=== PATIENT | female | born 1955 | race Caucasian/White ===

== ENCOUNTER 2024-03-08 02:03 | Observation (INO) ==
[2024-03-08 02:25] LABS: Basophils # (auto) 0.06 K/uL (0.00-0.20); Eosinophils % (auto) 3.4 %; Hematocrit (blood only) 37.1 % (37.0-47.0); Hemoglobin 12.3 g/dl (12.0-16.0); Immature Granulocytes # (auto) 0.01 K/uL (0.01-0.20); Immature Granulocytes % (auto) 0.2 %; Lymphocytes # (auto) 1.53 K/uL (1.20-3.40); Lymphocytes % (auto) 26.2 %; Mean Corpuscular Hemoglobin 30.8 pg (25.0-34.0); Mean Corpuscular Hgb Conc 33.2 g/dL (32.0-36.0); Mean Corpuscular Volume 92.8 fL (80.0-100.0); Monocytes # (auto) 0.82 K/uL (0.11-0.59); Neutrophils # (auto) 3.22 K/uL (1.40-6.50); Neutrophils % (auto) 55.2 %; Platelet Count 232 K/uL (130-400); RDW Coefficient of Variation 13.1 % (11.5-14.5); RDW Standard Deviation 44.4 fL (36.4-46.3); White Blood Count 5.84 K/ul (4.8-10.8)
--- NOTE | 2024-03-08 02:28 | Emergency Department Note ---
Impression & Plan Chest pressure ED Provider Note NAME: HEIDY DUNLAP AGE: 68 SEX: Female INFORMANT: Patient ED PROVIDER(S): Ammon Orr MD CHIEF COMPLAINT: Chest pressure PLAN: Disposition: Admitted Outpatient prescription management: none Referral: None MEDICAL DECISION MAKING: Patient presented to the emerged part because of chest heaviness. She had some mild ST depression inferiorly on prehospital ECG. She did feel better after nitro and aspirin. She was doing much better in the emergency department here. She did complain of some brief numbness in both upper and lower extremities bilaterally. It did start on the left side and moved to the right side. She had a nonfocal neurologic examination in the ER. A workup was initiated. ECG here in the ER. Improved without acute ischemia. The patient has an unremarkable CBC and chemistry panel. Cardiac troponin was negative x 1. Her D-dimer was elevated. CT imaging was ordered. Patient was monitored. Record was reviewed and the patient did see cardiology in January. She had an abnormal stress test and cardiology recommended cardiac CT. Patient noted this was not scheduled until April 2024. chest CT did not reveal any evidence of thromboembolic disease. Radiology question some possible infectious findings. Patient has no cough or congestion. BioFire testing was ordered. Discussed the need for further management in the hospital given the situation and patient in agreement. Consultation was made with Dr. Hipolito Rodriguez of the [facility] service. Patient was evaluated in the ER for further management. Care/management discussed with: body care manager Level of care consideration(s): After review of the information above and other included data, I feel the patient requires escalation of care to admission Triage Nursing notes: reviewed and agree them. Vital Signs: reviewed and remarkable for no significant abnormalities Additional History obtained from: none Chronic Medical/Social Conditions affecting care: Diabetes Prior/ Outside/ External records reviewed: Cardiology record from January 26, 2024 reviewed. Patient was seen by Dr. Buenrostro. Had abnormal stress test and they considered workup. Patient was referred for cardiac CT. Differential Diagnosis: Cardiac ischemia, aortic dissection, pulmonary embolism, pneumothorax, pneumonia, pericarditis, myocarditis, esophageal rupture, GERD, cholecystitis, pancreatitis, musculoskeletal, neurologic, as well as other pathologies. Diagnostics, independently interpreted by me: ECG: Twelve-lead ECG reveals a sinus rhythm at [address] elevation or depression. When compared to prehospital ECG from today the patient has resolution of inferior ST depression. Cardiac Monitoring: Cardiac monitoring ordered by me: The patient was placed on continuous cardiac monitoring and observed. It revealed a normal sinus rhythm at 69 beats per minute without ectopy or evidence of dysrhythmia. Medical decision rules: Patient is moderate risk by HEART SCORE. Imaging studies: Chest x-ray. Findings: A chest x-ray was performed and revealed no pneumothorax, effusion, infiltrate, pulmonary edema, free air under the diaphragm, or wide mediastinum. Impression: No acute disease. HPI: 68 year old Female arrives for evaluation of chest pressure. This started at 8 pm tonight and non radiating. The patient also notes the following associated symptoms, numbness in upper and lower extremities that started an hour ago. The patient has aspirin and nitro for relieving factors. Current pain is rated as 1/10. Pt denies LOC, headache, fevers, chills, diaphoresis, visual changes, neck pain, chest pain, breathing difficulties, nausea, vomiting, abdominal pain, back pain, melena, hematochezia, urinary symptoms, lymphadenopathy, rash, or other complaints. . PAST MEDICAL HISTORY: See Below, diabetes PAST SURGICAL HISTORY: See Below, SOCIAL HISTORY: See Below, non-smoker HOME MEDICATIONS: See Below ALLERGIES: See Below VITALS: See Below PHYSICAL EXAMINATION: GENERAL: Awake, alert, uncomfortable-appearing, in no distress HENT: Normocephalic, atraumatic. Oropharynx unremarkable. EYES: Normal conjunctiva. Sclera non-icteric. NECK: Inspection normal. Non-tender. Supple. No nuchal rigidity. FROM. No masses. RESPIRATORY: Clear to auscultation. No wheezes. No rales. Normal respiratory effort. CARDIAC: Normal rate. Normal rhythm. No murmurs. No rubs. Extremities warm and well perfused. Pulses equal. No JVD. GI: Soft, non-distended. No tenderness to palpation. No rebound or guarding. No masses. RECTAL: Deferred. MUSCULOSKELETAL: Atraumatic. Chest examination reveals no tenderness. The back is symmetrical on inspection without obvious abnormality. There is no CVA tenderness to palpation. No joint edema. LOWER EXTREMITIES: Calves are equal size bilaterally and non-tender. No edema. No discoloration. NEURO: Normal sensorium. No sensory or motor deficits noted. SKIN: No rash or jaundice noted. PROCEDURES: none CRITICAL CARE: none OBSERVATION NOTE: none Past Med/Surg History Problem List (Updated 03/08/24 @ 02:28 by Ammon Orr MD) Chest pressure (Acute) Changing skin lesion Abnormal stress test Onychomycosis Bilateral great toes Hyperlipidemia Encounter for pre-operative examination Anxiety (Acute) Chest pain on exertion (Acute) Chest pain (Acute) Diabetes mellitus type 2, controlled Iron deficiency anemia Renal calculus, left Medical History History of blood transfusion History of fainting Hx of chest pain Iron deficiency anemia Hx of peripheral neuropathy Diabetes mellitus, type 2 Urinary tract infection Hx of renal calculi Anxiety Surgical History Hx of vaginal surgery Hx of section Hx of colonoscopy [place] teeth extracted Family History Sister Breast cancer Mother Diabetes Father Myocardial infarction Other Heart disease Denies family history of Ovarian cancer Prostate cancer Colorectal cancer Social History Smoking Status: Never smoker Second Hand Exposure: No; Do You Dip or Chew Tobacco: No; Hx Alcohol Use: Yes (hx) Hx Substance Use: No Preferred Language: Macedonian Communication Ability: Effective Visual Impairment: No Limitations Hearing Ability: Hard of Hearing 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 Beliefs That Will Affect Care: None marital status: Current Living Situation: Spouse current occupational status: retired How many Children do You have: 2 How many Children do You have Comment: daughters Feels Safe at Home: Yes Childhood Exposure to Second-Hand Smoke: No Diet: diabetic caffeine: No during the past year weight has: decreased > 10 lbs Dental Care, Regularly: No Physical Activity Frequency: Daily Seatbelt Use: always Sunscreen Use: No Assistive Devices: Glasses Allergies Allergies Allergy/AdvReac Type Severity Reaction Status Date / Time nickel Allergy Mild RASH Verified 01/26/24 15:05 Home Meds Home Medications Medication Instructions Recorded Confirmed multivitamin 1 tab PO QPM 01/15/22 01/26/24 ascorbic acid (vitamin C) 1,000 mg 1,000 mg PO QAM 01/31/22 01/26/24 tablet,extended release (Vitamin C ER) Previous Rx's Medication Instructions Recorded aspirin 81 mg tablet,delayed 81 mg PO DAILY #30 tabs 02/21/22 release (Adult Low Dose Aspirin) atorvastatin 80 mg tablet See Rx Instructions .Route 02/12/23 .COMPLEX #90 tabs metformin 500 mg tablet 500 mg PO QPM #90 tabs 02/12/23 hydroxyzine HCl 25 mg tablet See Rx Instructions .Route 11/16/23 .COMPLEX #90 tabs sertraline 100 mg tablet 100 - 200 mg (1 - 2 x 100 mg) PO 12/02/23 DAILY #180 tabs ferrous gluconate 225 mg (27 mg 225 mg PO DAILY #90 tabs 12/14/23 iron) tablet gemfibrozil 600 mg tablet 600 mg PO BID 90 days #180 tabs 12/14/23 Results & Data (ED) Vital Signs Vital Signs - 24 hr 03/08/24 02:05 03/08/24 02:10 03/08/24 02:18 Temperature 36.6 C Temperature Source Oral Pulse Rate 77 73 Pulse Rate [Apical] Respiratory Rate 20 Respiratory Effort / Characteristics Non-Labored Spontaneous Respiratory Depth Normal Blood Pressure 158/75 H Blood Pressure [Right Arm] Blood Pressure Mean 102 Blood Pressure Mean [Right Arm] Pulse Oximetry 98 99 Oxygen Delivery Method Room Air Room Air Sepsis Recent Fever Within 48 Hours No Sepsis New/Unexplained Change in Mental Status N/A Sepsis Action Taken by Nursing No Action Required 03/08/24 02:30 03/08/24 03:01 03/08/24 03:30 Temperature Temperature Source Pulse Rate 85 87 77 Pulse Rate [Apical] Respiratory Rate 18 20 16 Respiratory Effort / Characteristics Respiratory Depth Blood Pressure 163/83 H 149/94 H 133/71 Blood Pressure [Right Arm] Blood Pressure Mean 127 98 100 Blood Pressure Mean [Right Arm] Pulse Oximetry 100 98 95 Oxygen Delivery Method Room Air Room Air Room Air Sepsis Recent Fever Within 48 Hours Sepsis New/Unexplained Change in Mental Status Sepsis Action Taken by Nursing 03/08/24 04:16 03/08/24 04:30 03/08/24 05:00 Temperature Temperature Source Pulse Rate Pulse Rate [Apical] 69 82 72 Respiratory Rate 18 18 20 Respiratory Effort / Characteristics Non-Labored Non-Labored Respiratory Depth Normal Normal Blood Pressure Blood Pressure [Right Arm] 135/75 133/69 152/73 H Blood Pressure Mean Blood Pressure Mean [Right Arm] 95 90 99 Pulse Oximetry 96 98 93 Oxygen Delivery Method Room Air Room Air Room Air Sepsis Recent Fever Within 48 Hours Sepsis New/Unexplained Change in Mental Status Sepsis Action Taken by Nursing 03/08/24 05:30 03/08/24 06:00 03/08/24 06:13 Temperature Temperature Source Pulse Rate 90 Pulse Rate [Apical] 69 71 Respiratory Rate 18 20 Respiratory Effort / Characteristics Respiratory Depth Blood Pressure Blood Pressure [Right Arm] 116/76 140/76 Blood Pressure Mean Blood Pressure Mean [Right Arm] 89 97 Pulse Oximetry 94 96 Oxygen Delivery Method Room Air Room Air Sepsis Recent Fever Within 48 Hours Sepsis New/Unexplained Change in Mental Status Sepsis Action Taken by Nursing Laboratory Data 03/08/24 02:10 03/08/24 02:10 Lab Results 03/08/24 Range/Units 02:10 WBC 5.84 (4.8-10.8) K/ul RBC 4.00 L (4.20-5.40) M/uL Hgb 12.3 (12.0-16.0) g/dl Hct 37.1 (37.0-47.0) % MCV 92.8 (80.0-100.0) fL MCH 30.8 (25.0-34.0) pg MCHC 33.2 (32.0-36.0) g/dL RDW Std Deviation 44.4 (36.4-46.3) fL RDW Coeff of Brianna 13.1 (11.5-14.5) % Plt Count 232 (130-400) K/uL MPV 10.0 (9.4-12.4) fL Immature Gran % (Auto) 0.2 % Neut % (Auto) 55.2 % Lymph % (Auto) 26.2 % Rowan % (Auto) 14.0 % Eos % (Auto) 3.4 % Baso % (Auto) 1.0 % Neut # (Auto) 3.22 (1.40-6.50) K/uL Lymph # (Auto) 1.53 (1.20-3.40) K/uL Rowan # (Auto) 0.82 H (0.11-0.59) K/uL Eos # (Auto) 0.20 (0.00-0.50) K/uL Baso # (Auto) 0.06 (0.00-0.20) K/uL Immature Gran # (Auto) 0.01 (0.01-0.20) K/uL D-Dimer 730 H* (0-500) ug/L FEU Sodium 139 (136-145) mmol/L Potassium 3.8 (3.5-5.1) mmol/L Chloride 107 (98-107) mmol/L Carbon Dioxide 23 (21-32) mmol/L Anion Gap 9 (3-11) BUN 26 H (6-23) mg/dl Creatinine 1.03 (0.6-1.2) mg/dl Est Cr Clr Drug Dosing 44.3 ml/min eGFR 58.86 BUN/Creatinine Ratio 25.2 H (10-20) Glucose 214 H (70-99(Fasting)) mg/dl Calcium 10.0 (8.6-10.3) mg/dl Total Bilirubin 0.4 (0.2-1.0) mg/dl AST 20 (13-39) U/L ALT 12 (7-52) U/L Alkaline Phosphatase 101 (34-104) U/L Troponin I High Sens 6.7 (0-14) pg/ml Total Protein 7.7 (6.0-8.3) gm/dl Albumin 4.7 (3.4-5.0) gm/dl Globulin 3.0 (2.5-4.0) gm/dl Albumin/Globulin Ratio 1.6 (0.9-2) Lipase 33 (11-82) U/L Administered Medications Discontinued Medications Ioversol (Optiray 320 125ml) 125 ml IV ONCE ONE Stop: 03/08/24 04:54 Last Admin: 03/08/24 04:53 Dose: 118 ml Documented By: JUWAN Imaging Data Radiologist's Impression: Chest X-Ray 03/08/24 02:07 EXAM: XR chest 1V portable CLINICAL HISTORY: CHEST PAIN [facility] TECHNIQUE: X-ray image of the chest is obtained in AP projection. COMPARISON: 09/09/2023 CR. FINDINGS: Pulmonary Parenchyma: Prominent central broncho vascular markings. No evidence of consolidation, collapse, or focal opacities. No evidence of pleural effusion or pleural thickening. Heart and Mediastinum: The heart size is unremarkable for an AP projection. Prominent hilar shadows, more on the left. Bony Thorax: Mild degenerative changes of the skeleton. Soft Tissues: Soft tissues overlying the chest wall are unremarkable. IMPRESSION: 1. Prominent hilar shadows with prominent broncho vascular markings (Stable). Clinical correlation is advised to assess for pulmonary congestion. 2. No significant interval change since the previous study. Electronically signed by Gabriel Saha 03-08-2024 03:09 AM Chest CTA 03/08/24 04:21 EXAM: CT angio chest PE protocol CLINICAL HISTORY: CP, +dimer, 118 ML OPTIRAY 320 TECHNIQUE: CT angiography of the chest was performed with intravenous contrast with the following protocol: axial images with, reconstructed coronal and sagittal images, followed by contrast-enhanced images in arterial and venous phases. Intravenous contrast [name and volume] was administered using automated injection techniques. Bolus tracking was employed to optimize arterial phase imaging. One of these 3D techniques was utilized: Maximum Intensity Pixel (MIP), 3D Reconstructed Images, Volume Rendered Images, Surface Shaded Rendering. One of the following dose reduction techniques was utilized for this exam: Automated exposure control, adjustment of the mA and/or kV according to patient size, and use of iterative reconstruction. COMPARISON: CT on 02/19/2022 and 03/08/2024 FINDINGS: Aorta and Great Vessels: Ascending Aorta: Normal in caliber, no aneurysm or dissection. Aortic Arch: Normal in caliber, no aneurysm or dissection. Descending Aorta: Normal in caliber, no aneurysm or dissection. Pulmonary Arteries: The main pulmonary artery and its branches are patent. No evidence of pulmonary embolism or significant stenosis. Heart: Cardiac Chambers: Normal in size. No evidence of cardiomegaly. Pericardium: No pericardial effusion or thickening. Lungs and Pleura: A small subpleural nodular opacities in the left lingula (stable) A few small peripheral nodular opacities in the right lower lobe. A few bilateral basal ground glass opacities are likely due to edema. No pleural effusion or pleural thickening. Mediastinum: No mediastinal mass or abnormal lymphadenopathy. Normal appearance of the trachea and central bronchi. Hilar Structures: Hilar structures are normal without enlargement. Chest Wall: No mass lesions or abnormalities in the chest wall. Vascular Structures: Superior Vena Cava: Patent without evidence of stenosis or thrombus. Inferior Vena Cava: Patent without evidence of stenosis or thrombus. Bones and Soft Tissues: No fractures, lytic, or blastic lesions of the visualized bony structures. Soft tissues are unremarkable. Significant atheromatous changes are noted in abdominal aorta and its branches IMPRESSION: 1. No evidence of acute pulmonary embolism or significant stenosis. 2. A few small peripheral nodular opacities/infilitrates seen in the right lower lobe suggesting infection followup is advised 3. A small subpleural nodular opacities in the left lingula (stable in comparison with CT on 02/19/2022. 4. A few bilateral basal ground glass opacities are likely due to edema. Electronically signed by Gabriel Saha 03-08-2024 06:00 AM Discharge Plan Visit Data Chief Complaint: Cardiac Assessment Stated Complaint: CHEST DISCOMFORT, HX OF SAME, HERE 1 WK AGO ED Provider: Ammon Orr Discharge Problem: Chest pressure Forms Stand Alone Forms: My [facility] [employer] Prescriptions Prescriptions: No Action aspirin [Adult Low Dose Aspirin] 81 mg tablet,delayed release (DR/EC) 81 mg PO DAILY Qty: 30 2RF hydroxyzine HCl 25 mg tablet See Rx Instructions .ROUTE .COMPLEX Qty: 90 1RF Dose Instruction: TAKE 1 TABLET BY MOUTH THREE TIMES DAILY NEEDED FOR ANXIETY Rx Instructions: TAKE 1 TABLET BY MOUTH THREE TIMES DAILY NEEDED FOR ANXIETY sertraline 100 mg tablet 100 - 200 mg PO DAILY Qty: 180 3RF Rx Instructions: take 1 tablet every day, take second tablet as needed for anxiety.; taken at HS. atorvastatin 80 mg tablet See Rx Instructions .ROUTE .COMPLEX Qty: 90 3RF Dose Instruction: Take 1 tablet by mouth once daily Rx Instructions: Take 1 tablet by mouth once daily metformin 500 mg tablet 500 mg PO QPM Qty: 90 3RF Rx Instructions: after lunch ferrous gluconate 225 mg (27 mg iron) tablet 225 mg PO DAILY Qty: 90 3RF Rx Instructions: Take 1 tablet every other day gemfibrozil 600 mg tablet 600 mg PO BID 90 Days Qty: 180 3RF Vitamin C 1,000 mg Tablet Extended Release 1,000 mg PO QAM multivitamin Tablet 1 tab PO QPM Rx Instructions: after lunch Referrals Referrals: Abdi Manuel DO [Primary Care Provider] -
[2024-03-08 02:42] LABS: Albumin Globulin Ratio 1.6 (0.9-2); Albumin Level 4.7 gm/dl (3.4-5.0); BUN Creatinine Ratio 25.2 (10-20); Bilirubin,Total 0.4 mg/dl (0.2-1.0); Creatinine Clr Calc Pharmacy 44.3 ml/min; Potassium 3.8 mmol/L (3.5-5.1); Total Protein 7.7 gm/dl (6.0-8.3)
[2024-03-08 02:48] LABS: Troponin I High Sensitivity 6.7 pg/ml (0-14)
--- NOTE | 2024-03-08 03:10 | XRay Report ---
EXAM: XR chest 1V portable CLINICAL HISTORY: CHEST PAIN [facility] TECHNIQUE: X-ray image of the chest is obtained in AP projection. COMPARISON: 09/09/2023 CR. FINDINGS: Pulmonary Parenchyma: Prominent central broncho vascular markings. No evidence of consolidation, collapse, or focal opacities. No evidence of pleural effusion or pleural thickening. Heart and Mediastinum: The heart size is unremarkable for an AP projection. Prominent hilar shadows, more on the left. Bony Thorax: Mild degenerative changes of the skeleton. Soft Tissues: Soft tissues overlying the chest wall are unremarkable. IMPRESSION: 1. Prominent hilar shadows with prominent broncho vascular markings (Stable). Clinical correlation is advised to assess for pulmonary congestion. 2. No significant interval change since the previous study. Electronically signed by Gabriel Saha 03-08-2024 03:09 AM
[2024-03-08 03:36] LABS: D Dimer 730 ug/L FEU (0-500)
[2024-03-08] MEDS: OPTIRAY 320 125ml IV ONE (04:53)
--- NOTE | 2024-03-08 06:00 | CT Scan Report ---
EXAM: CT angio chest PE protocol CLINICAL HISTORY: CP, +dimer, 118 ML OPTIRAY 320 TECHNIQUE: CT angiography of the chest was performed with intravenous contrast with the following protocol: axial images with, reconstructed coronal and sagittal images, followed by contrast-enhanced images in arterial and venous phases. Intravenous contrast [name and volume] was administered using automated injection techniques. Bolus tracking was employed to optimize arterial phase imaging. One of these 3D techniques was utilized: Maximum Intensity Pixel (MIP), 3D Reconstructed Images, Volume Rendered Images, Surface Shaded Rendering. One of the following dose reduction techniques was utilized for this exam: Automated exposure control, adjustment of the mA and/or kV according to patient size, and use of iterative reconstruction. COMPARISON: CT on 02/19/2022 and 03/08/2024 FINDINGS: Aorta and Great Vessels: Ascending Aorta: Normal in caliber, no aneurysm or dissection. Aortic Arch: Normal in caliber, no aneurysm or dissection. Descending Aorta: Normal in caliber, no aneurysm or dissection. Pulmonary Arteries: The main pulmonary artery and its branches are patent. No evidence of pulmonary embolism or significant stenosis. Heart: Cardiac Chambers: Normal in size. No evidence of cardiomegaly. Pericardium: No pericardial effusion or thickening. Lungs and Pleura: A small subpleural nodular opacities in the left lingula (stable) A few small peripheral nodular opacities in the right lower lobe. A few bilateral basal ground glass opacities are likely due to edema. No pleural effusion or pleural thickening. Mediastinum: No mediastinal mass or abnormal lymphadenopathy. Normal appearance of the trachea and central bronchi. Hilar Structures: Hilar structures are normal without enlargement. Chest Wall: No mass lesions or abnormalities in the chest wall. Vascular Structures: Superior Vena Cava: Patent without evidence of stenosis or thrombus. Inferior Vena Cava: Patent without evidence of stenosis or thrombus. Bones and Soft Tissues: No fractures, lytic, or blastic lesions of the visualized bony structures. Soft tissues are unremarkable. Significant atheromatous changes are noted in abdominal aorta and its branches IMPRESSION: 1. No evidence of acute pulmonary embolism or significant stenosis. 2. A few small peripheral nodular opacities/infilitrates seen in the right lower lobe suggesting infection followup is advised 3. A small subpleural nodular opacities in the left lingula (stable in comparison with CT on 02/19/2022. 4. A few bilateral basal ground glass opacities are likely due to edema. Electronically signed by Gabriel Saha 03-08-2024 06:00 AM
[2024-03-08 07:11] LABS: Adenovirus PCR Not Detected (NotDetected); Bordetella parapertussis PCR Not Detected (NotDetected); Bordetella pertussis PCR Not Detected (NotDetected); Chlamydia pneumoniae PCR Not Detected (NotDetected); Coronavirus 229E PCR Not Detected (NotDetected); Coronavirus CoV-2 (COVID19)PCR Not Detected (NotDetected); Coronavirus HKU1 PCR Not Detected (NotDetected); Coronavirus NL63 PCR Not Detected (NotDetected); Coronavirus OC43PCR Not Detected (NotDetected); Human Metapneumovirus PCR Not Detected (NotDetected); Influenza A PCR Not Detected (NotDetected); Influenza B PCR Not Detected (NotDetected); Mycoplasma pneumoniae PCR Not Detected (NotDetected); Parainfluenza Virus 1 PCR Not Detected (NotDetected); Parainfluenza Virus 2 PCR Not Detected (NotDetected); Parainfluenza Virus 3 PCR Not Detected (NotDetected); Parainfluenza Virus 4 PCR Not Detected (NotDetected); Respiratory Syncytial VirusPCR Not Detected (NotDetected); Rhinovirus/Enterovirus PCR Not Detected (NotDetected)
[2024-03-08] MEDS: hydrOXYzine HCl 25 MG TAB PO STA (07:32)
--- NOTE | 2024-03-08 07:43 | History & Physical Report ---
Date of Service March 08, 2024 Assessment & Plan (1) Unstable angina: Plan: Patient presents with unstable angina at rest after several months of stable angina Risk factors include longstanding diabetes, family history of heart disease With subtle ST depressions on prehospital ECG now resolved after nitroglycerin With abnormal stress echocardiogram as an outpatient in 11/2023 with inferobasal wall motion abnormality Admit to PCU for telemetry monitoring for arrhythmia Check resting echocardiogram, trend serial troponin and ECG I have discussed her case acutely with cardiology as I believe she needs cardiac catheterization-they agree and will take her for cardiac catheterization today, keep n.p.o. Keep electrolytes replete Follow BMP, CBC in the morning Give morning aspirin now, continue home statin which is already high intensity Check lipid panel, hemoglobin A1c (2) Diabetes mellitus type 2, controlled: Plan: Last hemoglobin A1c 7.4 % a few months ago Hold home metformin given IV dye load Treat with NovoLog sliding scale insulin only for now Check hemoglobin A1c Diabetic diet once able to eat after cardiac catheterization (3) Iron deficiency anemia: Plan: Listed as a diagnosis in the chart but most recent iron studies were normal and hemoglobin here is normal, normocytic She does take daily iron pills along with vitamin C-continue for now More importantly, if has iron deficiency, would question why in a postmenopausal [id number] as outpatient and recommend EGD and colonoscopy if persists (4) Anxiety: Plan: Stable, exacerbated by taking care of with dementia Continue home sertraline, as needed hydroxyzine (5) Hyperlipidemia: Plan: Checking lipid panel Gemfibrozil is unavailable here but will continue atorvastatin 80 mg daily Plan DVT prophylaxis-Lovenox SQ Disposition-admit to PCU Full code but would not want prolonged life support if in a poor/vegetative state History of Present Illness Chief Complaint: Chest pressure Primary Care Provider: Abdi Manuel DO This patient is a 68-year-old female with history of DM2, hyperlipidemia, iron deficiency anemia, generalized anxiety disorder, kidney stones who presents to the ER with chest pressure substernal, with radiating tingling sensation to the left shoulder and arm, left lower extremity and eventually to the right upper and lower extremity. Severity was a 2/10 and the symptoms came on at rest. She had no associated nausea, diaphoresis, or dyspnea. The chest pressure was completely relieved by nitroglycerin via ambulance. She is continuing to have some of the tingling in the left arm and leg intermittently in the emergency room. An ECG prehospital showed some subtle ST depressions in the inferior, anterior and perhaps lateral leads with T wave inversion in V6. She reports that she has been having similar chest pressure when she walks her dog up hills and sometimes if she walks after eating for the last few months. She has never had tingling in her extremities until today and has never had the chest pressure at rest which prompted her to call 911. ECG in the ER had improved with no further ST segment depressions. D-dimer was elevated and a CT angiogram of the chest was negative for PE or other acute process. She had a stress echocardiogram in 11/2023 which did show an area of hypokinesis in the inferobasal region new from previous and was seen by cardiology as an outpatient. There was plans for a CT coronaries but this was not scheduled until April. Allergies Allergy/AdvReac Type Severity Reaction Status Date / Time nickel Allergy Mild RASH Verified 03/08/24 09:32 Home Medications Medication Instructions Recorded Confirmed Type multivitamin 1 tab PO QPM 01/15/22 03/08/24 History ascorbic acid (vitamin C) 1,000 mg 1,000 mg PO QAM 01/31/22 03/08/24 History tablet,extended release (Vitamin C ER) aspirin 81 mg tablet,delayed 81 mg PO DAILY #30 tabs 02/21/22 03/08/24 Rx release (Adult Low Dose Aspirin) metformin 500 mg tablet 500 mg PO QPM #90 tabs 02/12/23 03/08/24 Rx sertraline 100 mg tablet 100 - 200 mg (1 - 2 x 100 mg) PO 12/02/23 03/08/24 Rx DAILY #180 tabs ferrous gluconate 225 mg (27 mg 225 mg PO DAILY #90 tabs 12/14/23 03/08/24 Rx iron) tablet gemfibrozil 600 mg tablet 600 mg PO BID 90 days #180 tabs 12/14/23 03/08/24 Rx atorvastatin 80 mg tablet 80 mg PO DAILY 03/08/24 03/08/24 History hydroxyzine HCl 25 mg tablet 25 mg PO TID PRN Anixety 03/08/24 03/08/24 History Past Med/Surg History Problem List (Updated 03/08/24 @ 10:55 by Fanny Cruz MD) Chest pain syndrome Unstable angina Chest pressure (Acute) Changing skin lesion Abnormal stress test Onychomycosis Bilateral great toes Hyperlipidemia Encounter for pre-operative examination Anxiety (Acute) Chest pain on exertion (Acute) Chest pain (Acute) Diabetes mellitus type 2, controlled Iron deficiency anemia Renal calculus, left Medical History History of blood transfusion History of fainting Hx of chest pain Iron deficiency anemia Hx of peripheral neuropathy Diabetes mellitus, type 2 Urinary tract infection Hx of renal calculi Anxiety Surgical History Hx of vaginal surgery Hx of section Hx of colonoscopy [place] teeth extracted Family History Sister Breast cancer Mother Diabetes Father Myocardial infarction Other Heart disease Denies family history of Ovarian cancer Prostate cancer Colorectal cancer Social History Smoking Status: Never smoker Second Hand Exposure: No; Do You Dip or Chew Tobacco: No; Tobacco Cessation Education Requested by Patient: No Hx Alcohol Use: No Hx Substance Use: No Preferred Language: Thai Communication Ability: Effective Visual Impairment: No Limitations Hearing Ability: Hard of Hearing Food Photographer Required: No Beliefs That Will Affect Care: None marital status: Current Living Situation: Spouse current occupational status: retired How many Children do You have: 2 How many Children do You have Comment: daughters Other Information That Helps Us Care for You: No Feels Safe at Home: Yes Safety Concerns: Feels Safe At This Time Childhood Exposure to Second-Hand Smoke: No Diet: diabetic caffeine: No during the past year weight has: decreased > 10 lbs Dental Care, Regularly: No Physical Activity Frequency: Daily Seatbelt Use: always Sunscreen Use: No Assistive Devices: Glasses Assistive Devices Comment: reading glasses Review of Systems Review of Systems: All systems reviewed & are unremarkable except as noted in HPI & below Denies fevers or chills, leg swelling, shortness of breath No issues with constipation or diarrhea, no blood in the stool or urine No nausea or vomiting She has been stressed with taking care of her who has dementia Physical Exam Constitutional: WD/WN, vitals as above Eyes: PERRL, conjunctivae normal, anicteric sclerae ENMT: external ear and nose normal, oropharynx normal Neck: trachea midline, no thyromegaly Respiratory: normal respiratory effort, lungs clear to auscultation Cardiovascular: RRR, no murmur, no edema Chest (Breasts): Chest: normal inspection of chest Gastrointestinal (Abdomen): normal bowel sounds, soft, nontender, no hepatosplenomegaly Musculoskeletal: Extremities: extremities normal to inspection; no cyanosis and no clubbing Skin: no rashes, warm and dry Neurologic: moves all extremities and awake; no focal motor deficits Psychiatric: A+Ox3, euthymic affect Lymphatic: no lymphedema Results & Data Results & Data Vital Signs (Past 12 Hours) Vital Signs Temp Pulse Pulse Resp BP BP Pulse Ox 03/08/24 06:13 90 03/08/24 06:00 71 20 140/76 96 03/08/24 05:30 69 18 116/76 94 03/08/24 05:00 72 20 152/73 H 93 03/08/24 04:30 82 18 133/69 98 03/08/24 04:16 69 18 135/75 96 03/08/24 03:30 77 16 133/71 95 03/08/24 03:01 87 20 149/94 H 98 03/08/24 02:30 85 18 163/83 H 100 03/08/24 02:18 99 03/08/24 02:10 73 03/08/24 02:05 36.6 C 77 20 158/75 H 98 O2 Del Method 03/08/24 06:13 03/08/24 06:00 Room Air 03/08/24 05:30 Room Air 03/08/24 05:00 Room Air 03/08/24 04:30 Room Air 03/08/24 04:16 Room Air 03/08/24 03:30 Room Air 03/08/24 03:01 Room Air 03/08/24 02:30 Room Air 03/08/24 02:18 Room Air 03/08/24 02:10 03/08/24 02:05 Room Air Laboratory Results CBC, CMP, troponin, D-dimer reviewed Diagnostic Findings Chest X-Ray 03/08/24 02:07 EXAM: XR chest 1V portable CLINICAL HISTORY: CHEST PAIN [facility] TECHNIQUE: X-ray image of the chest is obtained in AP projection. COMPARISON: 09/09/2023 CR. FINDINGS: Pulmonary Parenchyma: Prominent central broncho vascular markings. No evidence of consolidation, collapse, or focal opacities. No evidence of pleural effusion or pleural thickening. Heart and Mediastinum: The heart size is unremarkable for an AP projection. Prominent hilar shadows, more on the left. Bony Thorax: Mild degenerative changes of the skeleton. Soft Tissues: Soft tissues overlying the chest wall are unremarkable. IMPRESSION: 1. Prominent hilar shadows with prominent broncho vascular markings (Stable). Clinical correlation is advised to assess for pulmonary congestion. 2. No significant interval change since the previous study. Electronically signed by Gabriel Saha 03-08-2024 03:09 AM Chest CTA 03/08/24 04:21 EXAM: CT angio chest PE protocol CLINICAL HISTORY: CP, +dimer, 118 ML OPTIRAY 320 TECHNIQUE: CT angiography of the chest was performed with intravenous contrast with the following protocol: axial images with, reconstructed coronal and sagittal images, followed by contrast-enhanced images in arterial and venous phases. Intravenous contrast [name and volume] was administered using automated injection techniques. Bolus tracking was employed to optimize arterial phase imaging. One of these 3D techniques was utilized: Maximum Intensity Pixel (MIP), 3D Reconstructed Images, Volume Rendered Images, Surface Shaded Rendering. One of the following dose reduction techniques was utilized for this exam: Automated exposure control, adjustment of the mA and/or kV according to patient size, and use of iterative reconstruction. COMPARISON: CT on 02/19/2022 and 03/08/2024 FINDINGS: Aorta and Great Vessels: Ascending Aorta: Normal in caliber, no aneurysm or dissection. Aortic Arch: Normal in caliber, no aneurysm or dissection. Descending Aorta: Normal in caliber, no aneurysm or dissection. Pulmonary Arteries: The main pulmonary artery and its branches are patent. No evidence of pulmonary embolism or significant stenosis. Heart: Cardiac Chambers: Normal in size. No evidence of cardiomegaly. Pericardium: No pericardial effusion or thickening. Lungs and Pleura: A small subpleural nodular opacities in the left lingula (stable) A few small peripheral nodular opacities in the right lower lobe. A few bilateral basal ground glass opacities are likely due to edema. No pleural effusion or pleural thickening. Mediastinum: No mediastinal mass or abnormal lymphadenopathy. Normal appearance of the trachea and central bronchi. Hilar Structures: Hilar structures are normal without enlargement. Chest Wall: No mass lesions or abnormalities in the chest wall. Vascular Structures: Superior Vena Cava: Patent without evidence of stenosis or thrombus. Inferior Vena Cava: Patent without evidence of stenosis or thrombus. Bones and Soft Tissues: No fractures, lytic, or blastic lesions of the visualized bony structures. Soft tissues are unremarkable. Significant atheromatous changes are noted in abdominal aorta and its branches IMPRESSION: 1. No evidence of acute pulmonary embolism or significant stenosis. 2. A few small peripheral nodular opacities/infilitrates seen in the right lower lobe suggesting infection followup is advised 3. A small subpleural nodular opacities in the left lingula (stable in comparison with CT on 02/19/2022. 4. A few bilateral basal ground glass opacities are likely due to edema. Electronically signed by Gabriel Saha 03-08-2024 06:00 AM ECG Additional Comments: ECG on 03/08/2024 at 2:09 AM with normal sinus rhythm, rate 74, otherwise normal Code Status & VTE Plan Code Status Full code, but would not want prolonged life support if poor prognosis VTE Prophylaxis Plan VTE Prophylaxis will be ordered: Yes PG Care Time/CCT Total # of Minutes Spent Total Time Spent with Patient: Total time spent is greater than 50% in coordination of care (as documented) at patient's floor/unit and/or counseling patient: Coding Level of Care Code 55336 INT INP/OBS CARE 3/75MIN Diagnoses Unstable angina I20.0 Diabetes mellitus type 2, controlled E11.9 Iron deficiency anemia D50.9 Anxiety F41.9 Hyperlipidemia E78.5
[2024-03-08 08:40] LABS: Chol HDL Ratio 4.5 (0-5); Magnesium 2.1 mg/dl (1.7-2.4)
[2024-03-08 08:46] LABS: Troponin I High Sensitivity 7.2 pg/ml (0-14)
[2024-03-08 09:01] LABS: Estimated Average Glucose 154 mg/dl
[2024-03-08] MEDS: ASPIRIN 81 MG ECTAB PO STA (09:27)
--- NOTE | 2024-03-08 10:07 | Cardiology Consultation ---
Date of Consultation March 08, 2024 Assessment & Plan (1) Chest pain syndrome: 68 years very pleasant female with P/M/H of DM type II, Anxiety, Hyperlipidemia, Chest Pain presented to ED with complain of heaviness on her chest. - Chest pain: Typical Cardiac chest pain with risk factors present(RFs: DM,Hyperlipidemia, H/O cardiac event in family) - ECG: NSR with no ST-T changes( ED), T wave amplitude increased in anterior leads, compared to ECG of September. - Troponin: 7.2 - Stress Echo(November 2023): Negative for myocardial ischemia with small area of inferobasal akinesis (Infarct vs anatomic variant). - CT angio: No e/o Acute PE or stenosis - Given typical chest pain and along with Inferobasal akinesis on Stress Echo, catheterization of coronaries is advisable. - Talked to patient about procedure, indication, alternatives and complications, she is ready for catheterization today. S - Catheterization Scheduled for today with Dr. Elliot De La O. (2) Abnormal stress test: As per 1 (3) Hyperlipidemia: - LDL: 71 / HDL: 36 - Under Atorvastatin 80 mg PO Daily and Gemfibrozil. - She is already on high dose statin, continue same for now. (4) Anxiety: - Significant Anxiety and depression per patient history. - Under Hydroxyzine and Sertraline regularly. - if cardiac catheterization comes normal, anxiety/depression could be one of the potential reasons for he presentation. - recommend to follow PCP for further management. (5) Diabetes mellitus type 2, controlled: Supervising Physician Co-Signing Physician Notes Patient seen and examined. Agree with assessment and plan as outlined by Dr. Cruz. Impression: 1. Crescendo angina pectoris -Symptoms have progressed from exertional to now rest symptoms. -Numerous risk factors and positive family history. -Echocardiogram notes and inferobasal wall motion abnormality. -Coronary CTA scheduled for April. -Would proceed with a cardiac catheterization today. -Patient understands and agrees. History of Present Illness Reason for Consultation: Chest Pain Attending Physician: Gloria Mo MD History of Present Illness 68 years very pleasant female with P/M/H of DM type II, Anxiety, Hyperlipidemia, Chest Pain presented to ED with complain of heaviness on her chest, started yesterday. She explains it lasted for about an hour, feels like something pressing her chest right on left side of her mid sternum, non radiating, non migrating, moderate on intensity. She endorses some numbness on her left leg and right arm as well. She noticed this after episode of heaviness and explains it come and goes with last episode an hour ago in ED. Also mentions dyspnea associated with Chest pain during walking flat or uphill. She has visited couple of times to ED 10 years back with similar episode, 1st time 10 years ago and Last time September of 2023. Acute coronary syndrome was ruled out in both of this visit. Subsequently she visited cardiology office and stress test was done. Stress Echo was negative for myocardial ischemia with small area of inferobasal akinesis( Infarct vs anatomic variant). Dr Buenrostro had planned for CT angio of coronary arteries, scheduled on April of 2024. She has extensive family H/O cardiac events including her parent and sibling she says. This makes her more concerned about her chest pain and visited ED. No palpitation, abnormal sweating, leg swelling, SOB, CP at rest, orthopnea, PND, syncope, LOC. H/O DM for more than 10 years, fairy controlled on metformin. Patient mentions she has been going through lot of stress lately due to personal and family issues. 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 She feels overwhelmed, fatigued and explains her energy has gone way down compared to before. She has stopped doing stretching and is less active physically than before. 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 Her PCP suggested to increase Hydroxyzine tablets and 2 tablets a day is helping her sleep better now. Allergies Allergy/AdvReac Type Severity Reaction Status Date / Time nickel Allergy Mild RASH Verified 03/08/24 09:32 Home Medications Medication Instructions Recorded Confirmed Type multivitamin 1 tab PO QPM 01/15/22 03/08/24 History ascorbic acid (vitamin C) 1,000 mg 1,000 mg PO QAM 01/31/22 03/08/24 History tablet,extended release (Vitamin C ER) aspirin 81 mg tablet,delayed 81 mg PO DAILY #30 tabs 02/21/22 03/08/24 Rx release (Adult Low Dose Aspirin) metformin 500 mg tablet 500 mg PO QPM #90 tabs 02/12/23 03/08/24 Rx sertraline 100 mg tablet 100 - 200 mg (1 - 2 x 100 mg) PO 12/02/23 03/08/24 Rx DAILY #180 tabs ferrous gluconate 225 mg (27 mg 225 mg PO DAILY #90 tabs 12/14/23 03/08/24 Rx iron) tablet gemfibrozil 600 mg tablet 600 mg PO BID 90 days #180 tabs 12/14/23 03/08/24 Rx atorvastatin 80 mg tablet 80 mg PO DAILY 03/08/24 03/08/24 History hydroxyzine HCl 25 mg tablet 25 mg PO TID PRN Anixety 03/08/24 03/08/24 History Patient History Medical History History of blood transfusion History of fainting Hx of chest pain Iron deficiency anemia Hx of peripheral neuropathy Diabetes mellitus, type 2 Urinary tract infection Hx of renal calculi Anxiety Surgical History Hx of vaginal surgery Hx of section Hx of colonoscopy [place] teeth extracted Family History Sister Breast cancer Mother Diabetes Father Myocardial infarction Other Heart disease Denies family history of Ovarian cancer Prostate cancer Colorectal cancer Social History Smoking Status: Never smoker Second Hand Exposure: No; Do You Dip or Chew Tobacco: No; Hx Alcohol Use: No Hx Substance Use: No Preferred Language: [place]ese Communication Ability: Effective Visual Impairment: No Limitations Hearing Ability: Hard of Hearing [place] Required: No Beliefs That Will Affect Care: None marital status: Current Living Situation: Spouse current occupational status: retired How many Children do You have: 2 How many Children do You have Comment: daughters Feels Safe at Home: Yes Childhood Exposure to Second-Hand Smoke: No Diet: diabetic caffeine: No during the past year weight has: decreased > 10 lbs Dental Care, Regularly: No Physical Activity Frequency: Daily Seatbelt Use: always Sunscreen Use: No Assistive Devices: Glasses Review of Systems Review of Systems: As per HPI Physical Exam Physical Exam: Constitutional: Well appearing, No acute distress, PILCCOD: Negative HEENT: Atraumatic, Normocephalic, No conjunctival injection CVS: S1 S2 no murmur, Regular Rhythm, no LE edema Respiratory: BL equal air entry with NVBS. No rhonchi, wheezes, or crackles. No increased work of breathing GI: Soft, Nondistended, Nontender, Normal Bowel sounds Neuro: Alert, Oriented to TPP, No Focal deficit Psych: Mood and Affect congruent, Cooperative on exam Results & Data Vital Signs (Past 12 Hours) Vital Signs Temp Pulse Pulse Resp BP BP Pulse Ox 03/08/24 09:32 84 20 154/74 H 98 03/08/24 06:13 90 03/08/24 06:00 71 20 140/76 96 03/08/24 05:30 69 18 116/76 94 03/08/24 05:00 72 20 152/73 H 93 03/08/24 04:30 82 18 133/69 98 03/08/24 04:16 69 18 135/75 96 03/08/24 03:30 77 16 133/71 95 03/08/24 03:01 87 20 149/94 H 98 03/08/24 02:30 85 18 163/83 H 100 03/08/24 02:18 99 03/08/24 02:10 73 03/08/24 02:05 36.6 C 77 20 158/75 H 98 O2 Del Method 03/08/24 09:32 Room Air 03/08/24 06:13 03/08/24 06:00 Room Air 03/08/24 05:30 Room Air 03/08/24 05:00 Room Air 03/08/24 04:30 Room Air 03/08/24 04:16 Room Air 03/08/24 03:30 Room Air 03/08/24 03:01 Room Air 03/08/24 02:30 Room Air 03/08/24 02:18 Room Air 03/08/24 02:10 03/08/24 02:05 Room Air Resident Activity Tracking Resident Involvement: Resident Care Provided Care Provided: Adult Hospital Medicine
[2024-03-08] MEDS ORDERED: NITROGLYCERIN SL 0.4 MG/TAB TAB SL PRN (10:23)
[2024-03-08] MEDS ORDERED: ALUMINUM/MAGNESIUM SUSP 30 ML UDC PO PRN (10:23)
[2024-03-08] MEDS ORDERED: GLUCAGON FOR INJ 1 MG VIAL SQ PRN (10:23)
[2024-03-08] MEDS ORDERED: GLUCOSE 10 TAB/TUBE PO PRN (10:23)
[2024-03-08] MEDS ORDERED: CARBOHYDRATES FOR HYPOGLYCEMIA PO PRN (10:23)
[2024-03-08] MEDS ORDERED: POLYETHYLENE (MIRALAX) 17 GM PACK PO PRN (10:23)
[2024-03-08] MEDS ORDERED: hydrOXYzine HCl 25 MG TAB PO PRN (10:23)
[2024-03-08] MEDS ORDERED: GLUCOSE 40% GEL 15 GM TUBE PO PRN (10:23)
[2024-03-08] MEDS ORDERED: MoRPHine SULFATE 2 MG/ML CARP IV PRN (10:23)
[2024-03-08] MEDS ORDERED: MAGNESIUM HYDROXIDE SUSP 30 ML UDC PO PRN (10:23)
[2024-03-08] MEDS ORDERED: ONDANSETRON INJ 2 MG/ML 2 ML VIAL IV PRN (10:23)
[2024-03-08] MEDS ORDERED: DEXTROSE 50% 50 ML SYRINGE IV PRN (10:23)
--- NOTE | 2024-03-08 12:35 | Pre Anesthesia Assessment ---
Date of Service March 08, 2024 Pre Sedation Assessment Vital Signs Temp Pulse Pulse Pulse Resp BP BP 03/08/24 11:45 72 14 139/73 03/08/24 11:32 78 03/08/24 10:28 97.7 F 73 16 130/76 03/08/24 09:32 84 20 154/74 H 03/08/24 06:13 90 03/08/24 06:00 71 20 140/76 03/08/24 05:30 69 18 116/76 03/08/24 05:00 72 20 152/73 H 03/08/24 04:30 82 18 133/69 03/08/24 04:16 69 18 135/75 03/08/24 03:30 77 16 133/71 03/08/24 03:01 87 20 149/94 H 03/08/24 02:30 85 18 163/83 H 03/08/24 02:18 03/08/24 02:10 73 03/08/24 02:05 97.9 F 77 20 158/75 H Pulse Ox O2 Del Method 03/08/24 11:45 96 Room Air 03/08/24 11:32 03/08/24 10:28 97 Room Air 03/08/24 09:32 98 Room Air 03/08/24 06:13 03/08/24 06:00 96 Room Air 03/08/24 05:30 94 Room Air 03/08/24 05:00 93 Room Air 03/08/24 04:30 98 Room Air 03/08/24 04:16 96 Room Air 03/08/24 03:30 95 Room Air 03/08/24 03:01 98 Room Air 03/08/24 02:30 100 Room Air 03/08/24 02:18 99 Room Air 03/08/24 02:10 03/08/24 02:05 98 Room Air Cardiovascular + regular rate Respiratory + respiratory effort normal Pre-Sedation Airway Assessment Smoking Status: Never smoker Hx Sleep Apnea: No Hx Difficult Intubation: No Short, Thick Neck: No Thyromental Distance: > or= 3.5 Finger Breadths Oral Cavity: + WNL Mallampati Class: III ASA: ASA3 NPO Status Date of Last Intake of Fluids: 03/07/24 Time of Last Intake of Fluids: 18:00 Date of Last Intake of Solid Food: 03/07/24 Time of Last Intake of Solid Foods: 18:00 Procedure Planning Contraindications for Sedation: none Current Medications Reviewed: Yes Notes The planned sedation has been discussed with the patient. Informed Consent was obtained. I have identified the patient, determined the appropriateness of sedation and have assessed the patient immediately prior to the procedure. All medicine(s) and interventions are by my order.
[2024-03-08] MEDS: niCARdipine 2,000 MCG/20 ML SYR ONE (12:56)
[2024-03-08] MEDS: OPTIRAY 350 ONE (12:57)
[2024-03-08] MEDS: NITROGLYCERIN/D5W 100MCG/ML 20ML SYR ONE (12:57)
[2024-03-08] MEDS: MIDAZOLAM HCL 1 MG/ML 2ML VIAL ONE ×2 (13:43→14:27)
[2024-03-08] MEDS: fentaNYL citrate PF 100 MCG/2 ML VIAL ONE ×2 (13:43→14:27)
--- NOTE | 2024-03-08 14:04 | Electrocardiogram Report ---
Test Reason : Blood Pressure : */* mmHG Vent. Rate : 74 BPM Atrial Rate : 74 BPM P-R Int : 188 ms QRS Dur : 82 ms QT Int : 390 ms P-R-T Axes : 59 14 27 degrees QTcB Int : 432 ms Normal sinus rhythm Normal ECG When compared with ECG of 09-Sep-2023 18:02, T wave amplitude has increased in Anterior leads Confirmed by Eladio Quezada ([id number]) on 03/08/2024 2:04:01 PM Referred By: REFERRED SELF Confirmed By: Eladio Quezada
[2024-03-08] MEDS: HEPARIN (PORCINE) 1000 UNIT/ML 10 ML (CATH LAB USE ONLY) ONE (14:28)
[2024-03-08] MEDS: CLOPIDOGREL BISULFATE 300 MG TAB ONE (14:28)
[2024-03-08] MEDS: IODIXANOL (VISIPAQUE) 320 MG/ML 100ML IV ONE (14:29)
--- NOTE | 2024-03-08 14:44 | XCELERA ---
[id number]
[2024-03-08] MEDS: INSULIN ASPART PER UNIT CHARGE SC SCH ×2 (15:22→18:04)
[2024-03-08] MEDS: ATORVASTATIN 40 MG TAB PO SCH (15:33)
[2024-03-08] MEDS: ASCORBIC ACID 500 MG TAB PO SCH (15:33)
[2024-03-08] MEDS: ASPIRIN 81 MG ECTAB PO SCH (15:34)
[2024-03-08] MEDS: ENOXAPARIN INJ 40 MG/0.4 ML SYR SQ SCH (15:34)
[2024-03-08] MEDS: FERROUS SULFATE 325 MG TAB PO SCH (15:37)
[2024-03-08] MEDS: LIDOCAINE 1% LOCAL 20 ML VIAL ONE (16:22)
[2024-03-08] MEDS ORDERED: Nursing to Pharmacy Communication SCH (16:30)
--- NOTE | 2024-03-08 17:30 | Post Anesthesia Assessment ---
Date of Service March 08, 2024 Post Sedation Assessment Vital Signs Temp Pulse Pulse Pulse Resp BP BP 03/08/24 16:13 97.7 F 70 14 113/71 03/08/24 15:58 97.5 F L 82 14 106/69 03/08/24 15:28 97.7 F 63 16 108/64 03/08/24 15:13 97.7 F 60 16 127/73 03/08/24 15:05 97.5 F L 61 16 139/75 03/08/24 14:50 90 14 141/85 H 03/08/24 14:35 58 L 14 150/67 H 03/08/24 11:45 72 14 03/08/24 11:32 78 03/08/24 10:28 97.7 F 73 16 03/08/24 09:32 84 20 154/74 H 03/08/24 06:13 90 03/08/24 06:00 71 20 03/08/24 05:30 69 18 03/08/24 05:00 72 20 03/08/24 04:30 82 18 03/08/24 04:16 69 18 03/08/24 03:30 77 16 133/71 03/08/24 03:01 87 20 149/94 H 03/08/24 02:30 85 18 163/83 H 03/08/24 02:18 03/08/24 02:10 73 03/08/24 02:05 97.9 F 77 20 158/75 H BP Pulse Ox O2 Del Method 03/08/24 16:13 97 Room Air 03/08/24 15:58 96 Room Air 03/08/24 15:28 98 Room Air 03/08/24 15:13 98 Room Air 03/08/24 15:05 99 Room Air 03/08/24 14:50 97 Room Air 03/08/24 14:35 97 Room Air 03/08/24 11:45 139/73 96 Room Air 03/08/24 11:32 03/08/24 10:28 130/76 97 Room Air 03/08/24 09:32 98 Room Air 03/08/24 06:13 03/08/24 06:00 140/76 96 Room Air 03/08/24 05:30 116/76 94 Room Air 03/08/24 05:00 152/73 H 93 Room Air 03/08/24 04:30 133/69 98 Room Air 03/08/24 04:16 135/75 96 Room Air 03/08/24 03:30 95 Room Air 03/08/24 03:01 98 Room Air 03/08/24 02:30 100 Room Air 03/08/24 02:18 99 Room Air 03/08/24 02:10 03/08/24 02:05 98 Room Air Recovery Score Activity: Moves 4 extremities Respiration: Deep Breath/Cough Circulation: +/-20% PreAnes Value Consciousness: Fully Awake Oxygen Saturation: > 92% On Room Air Post Anesthesia Score: 10 Discharge Sedation Level of Care: Fast Track Phase II Post Sedation Plan On clinical assessment, the patient appears to have tolerated the sedation without complications. Patient is recovering as anticipated. Patient will continue to be monitored by nursing and may be discharged when sedation discharge criteria are met per below protocol. Upon Completions of procedure up to 15 minutes continue every 5 minute vital signs and the P.A.R. score; then discharge to a Phase I or Fast Track to Phase II per the following guidelines: * Discharge Patient to appropriate Phase II area if PAR is 8 or greater or return to pre- procedure baseline. The post - procedure orders will be as directed. * If PAR score is less than 8 or not return to pre-procedure baseline then patient will follow Phase I monitoring till PAR is reached for Phase II. The Phase I may be done in procedure room or may call to secure a Phase I area. * If naloxone or flumazenil are used for reversal, hold in Phase I for continued monitoring from when last reversal dose was given for a minimum of 60 minutes or longer pending the nurse and/or physician discretion of patient condition before discharge to Phase II. Please call the Sedation Physician to re-evaluate and complete post-note for discharge to Phase II area. Do NOT discharge from procedure sedation or Phase 1 until post- sedation evaluation note is complete by procedure /sedation MD Sedation Discharge Instructions to be given to the patient at discharge to home.
--- NOTE | 2024-03-08 17:37 | Cardiac Catheterization ---
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 Cardiac Status Clinical evaluation leading to the procedure CAD Presenation: Unstable angina Diagnostic Physicians Name: Elliot De La O MD Closure Device Recommendations: PCI without planned CABG Cardiac Cath Procedure Full Procedure Date March 08, 2024 Pre-Procedure Diagnosis Pre-Procedure Diagnosis: Angina and Positive Stress Test AUC Score AUC Score: 7 Post-Procedure Diagnosis Post-Procedure Diagnosis: Severe CAD and Successful PCI Procedure(s) Performed Procedure(s) Performed: Coronary Angiography, Left Heart Cath, Drug Eluting Stent and IVUS Pre Planning Advisor Elliot De La O MD Supervisor Dried Yeast(s) Brick Dropper Estimated Blood Loss Estimated Blood Loss: 25 Medication(s) Medication(s): Clopidogrel, Fentanyl, Heparin, Lidocaine 1%, Nicardipine, Nitroglycerin and Versed Summary of Findings Indication: Unstable angina, abnormal stress test Access: 6 Fr slender right radial artery Catheters: [place], EBU 3.5 guide Findings: LM -normal caliber, no significant disease LAD -medium caliber, ectatic proximally, calcified 70 to 80% earlymid stenosis after takeoff of D1 remainder of vessel is tortuous with luminal irregularities and wraps around apex. Medium D1 with 95% proximal stenosis. Circumflex -medium caliber, dominant, 50-60% mid stenosis, diffuse distal disease prior to 100% occlusion. Left PLB fills retrograde via left to left collaterals. Small distal AV groove circumflex into small left PDA fills partially via left to left collaterals. RCA -small, nondominant, 100% proximal occlusion. Acute marginal fills partially via right to right bridging collaterals and retrograde via [id number] collaterals. LVEDP -2 -- PCI -- Antithrombotic therapy: Heparin, clopidogrel Procedure: Left main cannulated with EBU 3.5 guide Pre-procedure flow MARIA ALEJANDRA 3 [place] blue wire passed across lesion into distal LAD [place] IVUS catheter placed to mid LAD. Pullback revealed severe, calcified proximal LAD extending across takeoff of diagonal. No significant left main disease. Whisper wire navigated into first diagonal and across severe stenosis Proximal first diagonal dilated with 2.0 balloon Proximal to mid LAD dilated with 2.0 balloon Ostial/proximal first diagonal stented with 2.5 x 15 mm Xience drug-eluting stent Kissing balloon inflation at takeoff of diagonal with 2.0 balloon and 2.5 stent balloon in diagonal Proximal to mid LAD further dilated with 2.5 balloon Proximal to mid LAD stented with 3.5 x 28 mm Xience across takeoff of first diagonal Repeat IVUS showed well-expanded stent. Stent not well apposed at proximal aspect. Proximal aspect of stent further dilated with 4.5 NC IC vasodilators administered for spasm Post procedure MARIA ALEJANDRA 3 flow, stents well expanded with minimal residual stenosis and no apparent cardiac complications. Arterial Closure: TR band Summary: 1. Severe multivessel coronary artery disease -75% earlymid LAD. 95% proximal D1 50% mid dominant circumflex. 100% distal circumflex. Left PLB and small distal AV groove circumflex fills via left to left collaterals. 100% proximal small nondominant RCA 2. Normal intracardiac filling pressure 3. Successful PCI of LAD/D1 bifurcation with 2 drug-eluting stents [T-stenting; 3.5 x 28 (postdilated with 4.5 NC) mm Xience LAD, 2.5 x 15 mm Xience D1]. Recommendations: To PCU for continued monitoring Loaded with clopidogrel 600 mg in Cableway Operator Continue dual-antiplatelet therapy for at least 1 year Continue statin, and ASCVD risk factor modification Consult cardiac Rehab Hemodynamics Rest Ao:: 91/51/91 Final Ao: 149/73/108 LV: 127/2 Recommendations Recommendations: PCI without planned CABG Specimens Specimens: None Radiation Exposure (mGy) 3601 Contrast (mls) 200 Anesthesia moderate [id number] Procedural Complication(s) None Disposition PCU I attest to the content of the Intraoperative Record and any orders documented therein. Any exceptions are noted below. [facility] Card Cath Procedure Codes Cardiac Catheterization Procedure 1: Cardiovascular Cath Procedures: 47053 Coronaries and LHC (+/-LV) Therapeutic Services & Ancillary Procedure 1: Cardiovascular Tx and Anc Procedures: 07041 IV Ultrasound (Coronary or Graft) Moderate Sedation Procedure 1: Sedation/Anesthesia: 67401 Mod Sedation by the same physician;Init15 Min Child Age 5 & Up Procedure 2: Sedation/Anesthesia: 66087 Mod Sedation by the same physician; Ea [id number] Minutes Stenting Procedure 1: Cardiovascular Stent Procedures: 73842 Perc transcatheter placement of intracoronary stent(s), with ang Procedure 2: Cardiovascular Stent Procedures: 89550 Ea addl branch of a major coronary artery PG Care Time/CCT Total # of Minutes Spent Total Time Spent with Patient: Total time spent is greater than 50% in coordination of care (as documented) at patient's floor/unit and/or counseling patient:
[2024-03-08] MEDS: SERTRALINE HCL 100 MG TABLET PO SCH (21:09)
--- OUTSIDE RECORDS SUMMARY | 2024-03-09 04:16 | External Medical Summary | Summary of Care ---
Author Name Unknown Organization [facility] Address [address] [place] [address] Phone [phone] Care Team Providers Care Medical Receptionist Medical Assistant Name Role Phone Unavailable Primary Care Provider Unavailabl e Reason for Referral * Evaluate & Treat - Unlimited Visits (Within 10 days (routine)) - Authorized Specialty Diagnoses / Procedures Referred By Contact Referred To Contact Cardiovascular Medicine / Cardiology Diagnoses Abnormal stress test Chest pain Dago Buenrostro MD [address] [address] Phone: tel: fax: Referral ID Status Reason Start Date Expiration Date Visits Requested Visits Authorized [id number] Authorized Specialty Services Required 4 [phone] Question Answer Referral Priority Within 10 days (routine) Where should this appointment be scheduled? [facility] To which of the following clinics are you referring your patient? General Cardiology Clinic Encounter Details Date Type Department Care Team (Late st Contact Info) Description 02/16/2024 Orders Only Access [facility], [place] [address] [place] [address] Ext *DO NOT REMOVE THIS DEPARTMENT* ZAINA GRIFFITHS [id number] Request, External Referral Abnormal stress test*; Chest pain Allergies Active Allergy Reactions Criticality Noted Date Comments Dust 05/25/2014 documented as of this encounter (statuses as of 02/16/2024) Medications VENLAFAXINE HCL ER 150 MG PO CP24 None Entered 11 05/07/2014 Active VENLAFAXINE HCL ER 75 MG PO CP24 None Entered 11 05/07/2014 Active documented as of this encounter (statuses as of 02/16/2024) Social History Tobacco Use Types Packs/Day Years Used Date Smoking Tobacco: Never Smokeless Tobacco: Never Alcohol Use Standard Drinks/Week Comments Yes 0 (1 standard drink = 0.6 oz pur e alcohol) Utilities Answer Date Recorded Do you have trouble paying y our heating, water, or electric bill? (Adult - for ages 18 years and over) Not on file 09/22/2023 Is your family able to pay t he heat, water, or electric bill? (Household - for ages 0-17 years) Not on file 09/22/2023 Does your family have access to good internet? (Household - for ages 0-17 years) Not on file 09/22/2023 Social Connections Answer Date Recorded How often do you feel lonely or isolated from those around you? (Adult - for ages 18 years and over) Not on file 09/22/2023 Comments No Sex and Gender Information Value Date Recorded Sex Assigned at Not on file Legal Sex Female 4:51 AM EST Gender Identity Not on file Sexual Orientation Not on file documented as of this encounter Plan of Treatment Scheduled Referrals Name Type Priority Associated Diagnoses Orde r Schedule CARDIOLOGY REFERRAL OP Referral Within 10 days (routine) Abnormal stress test Chest pain Ordered: 02/16/2024 Health Maintenance Due Date Last Done Comments Lipid Panel 1954 Depression Screening 1966 Hepatitis C Screening 1972 DTap/Tdap Vaccines (1 - Tdap) 1973 Mammogram 1994 Cologuard 1999 Colonoscopy 1999 Colorectal Cancer Screening 1999 Fecal Occult Blood Test 1999 Sigmoidoscopy 1999 Zoster Vaccines (1 of 2) 2004 DXA Scan 2019 Pneumococcal Vaccine: 65+ Ye ars (1 of 1 - PCV) 2019 COVID-19 Vaccine ( - 2023-2 5 season) 2023 Influenza Vaccine (FLU shot) (#1) 2023 HPV (Gardasil) Vaccine Aged Out No lo nger eligible based on patient's age to complete this topic Hepatitis B Vaccine Aged Out No longe r eligible based on patient's age to complete this topic MENINGOCOCCAL (MENACTRA/MENVEO) Aged Out No longer eligible based on patient's age to complete this topic documented as of this encounter Medical Devices Not on filedocumented as of this encounter Visit Diagnoses Diagnosis Abnormal stress test- Primary Other nonspecific abnormal cardiovascular system function study Chest pain Chest pain, unspecified documented in this encounter
--- OUTSIDE RECORDS SUMMARY | 2024-03-09 04:16 | External Medical Summary | Summary of Care ---
Author Name Unknown Organization [facility] Address [address] [place] [address] Phone [phone] Care Team Providers Care Expanding Machine Operator Name Role Phone Unavailable Primary Care Provider Unavailabl e Reason for Referral * Precert (Routine) - Pending Review Specialty Diagnoses / Procedures Referred By Contac t Referred To Contact Radiology Diagnoses Chest pain Abnormal stress test Procedures CT CARDIAC COMPLETE Access [address] Ext *DO NOT REMOVE THIS DEPARTMENT* ZAINA GRIFFITHS [id number] Phone: tel: Referral ID Status Reason Start Date Expiration Date Visits Requested Visits Authorized [id number] Pending Review Precert 02/16/2024 1 1 * Precert (Routine) - Authorized Specialty Diagnoses / Procedures Referred By Contac t Referred To Contact Radiology Diagnoses Chest pain Abnormal stress test Procedures CT FFR CORONARY ARTERIES Access [address] *DO NOT REMOVE THIS DEPARTMENT* ZAINA GRIFFITHS [id number] Phone: tel: Referral ID Status Reason Start Date Expiration Date V isits Requested Visits Authorized [id number] Authorized Precert 02/16/2024 1 1 Encounter Details Date Type Department Care Team (Late st Contact Info) Description 02/16/2024 Orders Only Access [place] [address] Ext *DO NOT REMOVE THIS DEPARTMENT* ZAINA GRIFFITHS [id number] Requisition, External Radiology [address] [place] [address] Chest pain*; Abnormal stress test Allergies Active Allergy Reactions Criticality Noted Date Comments Dust 05/25/2014 documented as of this encounter (statuses as of 02/16/2024) Medications VENLAFAXINE HCL ER 150 MG PO CP24 None Entered 05/07/2014 Active VENLAFAXINE HCL ER 75 MG [...] of this encounter Plan of Treatment Scheduled Orders Name Type Priority Associated Diagnoses Orde r Schedule CT FFR CORONARY ARTERIES Medical Imaging Routine Chest pain Abnormal stress test Expected: 02/16/2024, Expires: 03/17/2025 CT CARDIAC COMPLETE Medical Imaging Routine Chest pain Abnormal stress test Expected: 02/16/2024, Expires: 03/17/2025 Health Maintenance Due Date Last Done Comments [...] as of this encounter Visit Diagnoses Diagnosis Chest pain- Primary Chest pain, unspecified Abnormal stress test Other nonspecific abnormal cardiovascular system function study documented in this encounter
[2024-03-09] MEDS: ACETAMINOPHEN 325 MG TAB PO PRN (07:06)
[2024-03-09 07:43] LABS: Basophils # (auto) 0.06 K/uL (0.00-0.20); Basophils % (auto) 0.8 %; Eosinophils # (auto) 0.19 K/uL (0.00-0.50); Eosinophils % (auto) 2.6 %; Hematocrit (blood only) 38.7 % (37.0-47.0); Hemoglobin 12.9 g/dl (12.0-16.0); Immature Granulocytes # (auto) 0.03 K/uL (0.01-0.20); Immature Granulocytes % (auto) 0.4 %; Lymphocytes # (auto) 1.32 K/uL (1.20-3.40); Lymphocytes % (auto) 18.4 %; Mean Corpuscular Hemoglobin 31.2 pg (25.0-34.0); Mean Corpuscular Hgb Conc 33.3 g/dL (32.0-36.0); Mean Corpuscular Volume 93.5 fL (80.0-100.0); Mean Platelet Volume 10.5 fL (9.4-12.4); Monocytes # (auto) 0.81 K/uL (0.11-0.59); Monocytes % (auto) 11.3 %; Neutrophils # (auto) 4.76 K/uL (1.40-6.50); Neutrophils % (auto) 66.5 %; Platelet Count 247 K/uL (130-400); RDW Coefficient of Variation 13.2 % (11.5-14.5); RDW Standard Deviation 44.7 fL (36.4-46.3); Red Blood Count 4.14 M/uL (4.20-5.40); White Blood Count 7.17 K/ul (4.8-10.8)
[2024-03-09 07:56] LABS: Calcium 9.9 mg/dl (8.6-10.3); Creatinine Clr Calc Pharmacy 55.2 ml/min; Magnesium 2.2 mg/dl (1.7-2.4); Potassium 4.2 mmol/L (3.5-5.1)
[2024-03-09] MEDS: CLOPIDOGREL BISULFATE 75 MG TAB PO SCH (08:42)
--- NOTE | 2024-03-09 10:00 | Electrocardiogram Report ---
Test Reason : Blood Pressure : */* mmHG Vent. Rate : 75 BPM Atrial Rate : 75 BPM P-R Int : 176 ms QRS Dur : 72 ms QT Int : 398 ms P-R-T Axes : 60 17 25 degrees QTcB Int : 444 ms Normal sinus rhythm Normal ECG When compared with ECG of 08-Mar-2024 02:09, No significant change was found Confirmed by Eladio Quezada ([id number]) on 03/09/2024 9:59:48 AM Referred By: REFERRED SELF Confirmed By: Eladio Quezada
--- NOTE | 2024-03-09 13:36 | Cardiology Progress Note ---
Date of Service March 09, 2024 Assessment & Plan (1) CAD (coronary artery disease): Plan: -s/p LAD and D1 stents yesterday. -Dual antiplatelet therapy for at least 1 year. -Relative hypotension limits beta-ozzy use. -Stable for hospital discharge. -Follow-up with Dr. Buenrostro. (2) Hyperlipidemia: Plan: -Continue atorvastatin at 80 mg nightly. Admission and Anticipated Discharge Date Admission Date: March 08, 2024 Subjective The patient is resting comfortably in bed without complaints of chest pain or dyspnea. She is anxious for hospital discharge. Physical Exam Physical Exam: In general this is a well-developed well-nourished white female in no acute distress. HEENT exam is negative. Neck reveals normal carotid upstrokes without bruits. Jugular venous pressure is flat at 90. There is no thyromegaly. Cardiovascular exam reveals a regular rhythm with a normal S1 and S2. No S3, S4, or murmurs are noted. Lungs are clear without rales, rhonchi, or wheezes. Abdomen is soft without bruits. Extremities reveal intact radial artery pulses bilaterally. Dressing on the right wrist is dry. There is no peripheral edema. Results & Data Vital Signs (Past 12 Hours) Vital Signs Temp Pulse Pulse Pulse Resp BP Pulse Ox 03/09/24 12:00 36.7 C 81 16 110/58 L 95 03/09/24 09:00 03/09/24 08:00 36.6 C 73 16 106/63 94 03/09/24 07:22 78 03/09/24 03:25 36.6 C 70 18 127/71 96 O2 Del Method 03/09/24 12:00 Room Air 03/09/24 09:00 Room Air 03/09/24 08:00 Room Air 03/09/24 07:22 03/09/24 03:25 Room Air PG Care Time/CCT Total # of Minutes Spent Total Time Spent with Patient: Total time spent is greater than 50% in coordination of care (as documented) at patient's floor/unit and/or counseling patient: Coding Level of Care Code 49929 SUB INP/OBS CARE 3/50MIN Diagnoses CAD (coronary artery disease) I25.10 Hyperlipidemia E78.5
--- NOTE | 2024-03-09 16:02 | Electrocardiogram Report ---
Test Reason : Blood Pressure : */* mmHG Vent. Rate : 81 BPM Atrial Rate : 81 BPM P-R Int : 174 ms QRS Dur : 74 ms QT Int : 380 ms P-R-T Axes : 64 28 37 degrees QTcB Int : 441 ms Normal sinus rhythm Normal ECG When compared with ECG of 09-Mar-2024 06:40, No significant change was found Confirmed by Eladio Quezada ([id number]) on 03/09/2024 4:02:34 PM Referred By: REFERRED SELF Confirmed By: Eladio Quezada
--- NOTE | 2024-03-09 16:38 | Hospitalist Progress Note ---
Date of Service March 09, 2024 Assessment & Plan (1) Unstable angina: Plan: Patient p/w unstable angina at rest after several months of stable angina Risk factors include longstanding diabetes, family history of heart disease With subtle ST depressions on prehospital ECG which resolved after nitroglycerin With abnormal stress echocardiogram as an outpatient in 11/2023 with inferobasal wall motion abnormality Had cardiac catheterization on 03/08 and was found to have severe multivessel CAD: 75% earlymid LAD. 95% proximal D1, 50% mid dominant circumflex, 100% distal circumflex. Left PLB and small distal AV groove circumflex fills via left to left collaterals, and 100% proximal small nondominant RCA She underwent successful PCI of LAD/D1 bifurcation with 2 drug-eluting stents [T-stenting; 3.5 x 28 (postdilated with 4.5 NC) mm Xience LAD, 2.5 x 15 mm Xien ce D1] Echo with small area of akinesis in proximal inferior wall, preserved EF 55-60%, mild MR Continue PCU for telemetry monitoring for arrhythmia Keep electrolytes replete Follow BMP, CBC in the morning Continue aspirin and added Plavix 75 mg daily-continue DAPT for at least 1 year Cardiac rehab to be consulted by cardiology as an outpatient Lipid panel is acceptable-continue home statin which is already high intensity Patient had some atypical left-sided chest pain that seems MSK in nature on 03/09 but also with some residual bilateral hand numbness. Neither symptom is as significant as it was on the day of presentation Continue to trend serial troponin which peaked at 379 after admission- downtrending despite ongoing left-sided pain on 03/09 for several hours which is reassuring Repeat ECG 03/09 is normal Continue to trend serial troponin given new atypical left-sided chest pain post cath Keep overnight for further observation (2) CAD (coronary artery disease): Plan: As noted above Ideally would like to add beta-ozzy but her blood pressures have been a bit soft-reconsider if blood pressures improve (3) Diabetes mellitus type 2, controlled: Plan: Last hemoglobin A1c 7.4 % a few months ago Hold home metformin given IV dye load Treat with NovoLog sliding scale insulin only for now Hemoglobin A1c here is well-controlled at 7.0% Diabetic diet (4) Iron deficiency anemia: Plan: Listed as a diagnosis in the chart but most recent iron studies were normal and hemoglobin here is normal, normocytic She does take daily iron pills along with vitamin C-continue for now More importantly, if has iron deficiency, would question why in a postmenopausal [id number] as outpatient with PCP and recommend EGD and colonoscopy if persists (5) Anxiety: Plan: Stable, exacerbated by taking care of with dementia Continue home sertraline, as needed hydroxyzine (6) Hyperlipidemia: Plan: lipid panel is acceptable Gemfibrozil is unavailable here but will continue atorvastatin 80 mg daily Plan DVT prophylaxis-Lovenox SQ Disposition-continued stay on PCU given ongoing left-sided chest pain Full code but would not want prolonged life support if in a poor/vegetative state Will call daughter with update on 03/09 Admission and Anticipated Discharge Date Admission Date: March 08, 2024 Subjective Patient reports feeling so much better and anxious to get home, however did start to have some left sided chest pain and reports some numbness in her hands but nothing as bad as yesterday that brought her in. This left-sided chest pain she has also had in the past and thought it was always related to doing push- ups. Today, the pain came on while she was laying in bed and then seem to worsen when she got out of bed and put her pants on and put her shoes on. It is directly tender over the left chest wall. Movement does not necessarily make it better or worse. No shortness of breath or nausea. I discussed her care with cardiology. Repeat ECG is normal. She has had no telemetry arrhythmias-remains in normal sinus rhythm with rates in the 70s She seems unsure about if this pain is similar to what she had in the past but it is definitely different than what brought her to the hospital yesterday. Tylenol was given and her pain was about the same 2 hours later. Physical Exam Constitutional: WD/WN, vitals as above Neck: trachea midline, no thyromegaly Respiratory: normal respiratory effort, lungs clear to auscultation Cardiovascular: RRR, no murmur, no edema Chest (Breasts): Chest: normal inspection of chest Additional Comments: Positive tenderness to palpation over left side of anterior chest wall at site of pain, no masses or hematoma noted Gastrointestinal (Abdomen): normal bowel sounds, soft, nontender, no hepatosplenomegaly Musculoskeletal: Extremities: extremities normal to inspection; no cyanosis and no clubbing Skin: no rashes, warm and dry Neurologic: moves all extremities and awake; no focal motor deficits Psychiatric: Orientation: alert and oriented x 3 Affect: + anxious affect Lymphatic: no lymphedema Results & Data Results & Data Vital Signs (Past 12 Hours) Vital Signs Temp Pulse Pulse Pulse Resp BP BP 03/09/24 15:58 36.8 C 85 16 121/72 03/09/24 15:00 91 H 03/09/24 12:00 36.7 C 81 16 110/58 L 03/09/24 09:00 03/09/24 08:00 36.6 C 73 16 106/63 03/09/24 07:22 78 Pulse Ox O2 Del Method 03/09/24 15:58 96 Room Air 03/09/24 15:00 03/09/24 12:00 95 Room Air 03/09/24 09:00 Room Air 03/09/24 08:00 94 Room Air 03/09/24 07:22 Laboratory Results CBC, BMP, magnesium, troponin x 2 reviewed PG Care Time/CCT Total # of Minutes Spent Total Time Spent with Patient: Total time spent is greater than 50% in coordination of care (as documented) at patient's floor/unit and/or counseling patient: Coding Level of Care Code 99092 SUB INP/OBS CARE 2/35MIN Diagnoses Unstable angina I20.0 CAD (coronary artery disease) I25.10 Diabetes mellitus type 2, controlled E11.9 Iron deficiency anemia D50.9 Anxiety F41.9 Hyperlipidemia E78.5
[2024-03-09] MEDS: PNEUMOCOCCAL VACCINE (PCV20) 20-VAL CONJ-DIP CRM/PF 0.5 ML SYR IM ONE (17:46)
[2024-03-09] MEDS: LIDOCAINE 5% 1 PATCH TD STA (17:47)
[2024-03-09 23:30] VITALS: RESP 16
[2024-03-10 08:06] LABS: BUN Creatinine Ratio 37.5 (10-20); Calcium 9.7 mg/dl (8.6-10.3); Creatinine Clr Calc Pharmacy 62.1 ml/min; Magnesium 2.1 mg/dl (1.7-2.4); Potassium 3.7 mmol/L (3.5-5.1)
[2024-03-10 08:15] LABS: Troponin I High Sensitivity 105.5 pg/ml (0-14)
[2024-03-10 10:53] VITALS: TEMP 97.7; O2SAT 94
--- NOTE | 2024-03-10 12:29 | Discharge Summary ---
Discharge Summary Date of Service March 10, 2024 Principal Dx & Hospital Course #1 = Principal Diagnosis (1) Unstable angina: Patient p/w unstable angina at rest after several months of stable angina Risk factors for CAD include longstanding diabetes, family history of heart disease With subtle ST depressions on prehospital ECG which resolved after nitroglycerin and w/ abnormal stress echocardiogram as an outpatient in 11/2023 with inferobasal wall motion abnormality Cardiac catheterization 03/08 w/ severe multivessel CAD: 75% earlymid LAD. 95% proximal D1, 50% mid dominant circumflex, 100% distal circumflex. Left PLB and small distal AV groove circumflex fills via left to left collaterals, and 100% proximal small nondominant RCA She underwent successful PCI of LAD/D1 bifurcation with 2 drug-eluting stents [T-stenting; 3.5 x 28 (postdilated with 4.5 NC) mm Xience LAD, 2.5 x 15 mm Xience D1] Echo with small area of akinesis in proximal inferior wall, preserved EF 55-60%, mild MR Telemetry monitoring for arrhythmia normal Continue aspirin and added Plavix 75 mg daily-continue DAPT for at least 1 year Cardiac rehab to be consulted by cardiology as an outpatient Lipid panel is acceptable-continue home statin which is already high intensity Patient had some atypical left-sided chest pain that seems MSK in nature on 03/09 but also with some residual bilateral hand numbness. Neither symptom is as significant as it was on the day of presentation Trended further serial troponins which had peaked at 379 after admission- downtrending and repeat ECG 03/09 is normal On day of dc, pt was completely asymptomatic and ambulated around halls for 30 min straight with no symptoms at all (2) CAD (coronary artery disease): As noted above Ideally would like to add beta-ozzy but her blood pressures have been a bit soft-reconsider if blood pressures increase as outpt (3) Diabetes mellitus type 2, controlled: Last hemoglobin A1c 7.4 % a few months ago Held home metformin given IV dye load but can resume on discharge Hemoglobin A1c here is well-controlled at 7.0% Diabetic diet (4) Iron deficiency anemia: Listed as a diagnosis in the chart but most recent iron studies were normal and hemoglobin here is normal, normocytic She does take daily iron pills along with vitamin C-continue for now More importantly, if has iron deficiency, would question why in a postmenopausal [id number] as outpatient with PCP and recommend EGD and colonoscopy if persists (5) Anxiety: Stable, exacerbated by taking care of with dementia Continue home sertraline, as needed hydroxyzine (6) Hyperlipidemia: lipid panel is acceptable continue home Gemfibrozil and atorvastatin 80 mg daily Plan DVT prophylaxis-Lovenox SQ Disposition-dc to home Full code but would not want prolonged life support if in a poor/vegetative state Notes For Next Care Provider Needs cardiac rehab referral Medication Changes From Visit Added Plavix 75mg po daily Admission HPI Per Admitting Provider This patient is a 68-year-old female with history of DM2, hyperlipidemia, iron deficiency anemia, generalized anxiety disorder, kidney stones who presents to the ER with chest pressure substernal, with radiating tingling sensation to the left shoulder and arm, left lower extremity and eventually to the right upper and lower extremity. Severity was a 2/10 and the symptoms came on at rest. She had no associated nausea, diaphoresis, or dyspnea. The chest pressure was completely relieved by nitroglycerin via ambulance. She is continuing to have some of the tingling in the left arm and leg intermittently in the emergency room. An ECG prehospital showed some subtle ST depressions in the inferior, anterior and perhaps lateral leads with T wave inversion in V6. She reports that she has been having similar chest pressure when she walks her dog up hills and sometimes if she walks after eating for the last few months. She has never had tingling in her extremities until today and has never had the chest pressure at rest which prompted her to call 911. ECG in the ER had improved with no further ST segment depressions. D-dimer was elevated and a CT angiogram of the chest was negative for PE or other acute process. She had a stress echocardiogram in 11/2023 which did show an area of hypokinesis in the inferobasal region new from previous and was seen by cardiology as an outpatient. There was plans for a CT coronaries but this was not scheduled until April. Discharge Exam Constitutional WD/WN, vitals as above Neck trachea midline, no thyromegaly Respiratory normal respiratory effort, lungs clear to auscultation Cardiovascular RRR, no murmur, no edema Chest (Breasts) Chest: normal inspection of chest Gastrointestinal (Abdomen) normal bowel sounds, soft, nontender, no hepatosplenomegaly Musculoskeletal Extremities: extremities normal to inspection; no cyanosis and no clubbing Skin no rashes, warm and dry Neurologic moves all extremities and awake; no focal motor deficits Psychiatric A+Ox3, euthymic affect Lymphatic no lymphedema Discharge Plan Discharge Items Patient Disposition: Home - Self-Care Reason For Visit: CHEST PAIN Discharge Diagnosis: Severe coronary artery disease Unstable angina Condition on Discharge: Good Activity: As commented below Exercise/Sports: Wait until after follow-up appointment Driving/Machine Use: Resume 1 day after discharge Non-emergency contact: Primary Care Provider and Systems Integrator Call non-emergency contact if: you have any medication questions, your symptoms worsen and your pain is concerning for you Follow-up/Referrals: Eladio Quezada MD [Physician] - (Please follow up within 2 weeks) Abdi Manuel DO [Primary Care Provider] - (Follow up within 1-2 weeks) Diet: Carb Consistent or DM2 and Heart Healthy Addtl Attending Provider Instructions: You were admitted with angina and had 2 stents placed in your heart for severe blockages. This resolved your symptoms. Please continue taking both aspirin and the new blood thinner called Plavix (clopidrogel) every day to keep these stents from clotting off. Do not stop taking your blood thinners without first talking to your PCP or Systems Integrator. ACTIVITY RECOMMENDATIONS: Excess manipulation of the wrist should be avoided for the next 24-48 hours. * No lifting over 2 pounds (approximately a 1/2 gallon of milk) with the utilized arm for 24 hours. * No strenuous activity such as bowling or tennis for 3 days. * Keep the site of the procedure covered with a bandage for 24 hours. *You may shower the day after the procedure. Do not take a tub bath or submerge the puncture site in water for the next 3 days. *Do not operate any motorized equipment for 3 days. SPECIAL CARE INSTRUCTIONS: The site may be slightly bruised and sore following your procedure. Should any of the following occur, contact the DrSandra who performed your procedure. 1. Redness/inflammation, swelling, chills, or fever, or colored drainage at procedure site within 3-7 days after your procedure. 2. Coldness, discoloration, ongoing numbness, severe pain, or swelling. Expect mild tingling of hand and tenderness at the puncture site for up to three days. If this persists beyond three days, or other symptoms develop, notify the Dr. who performed your procedure. BLEEDING: If the procedure site on your wrist begins to bleed, do not panic 1. Place 1 or 2 fingers firmly just slightly above the insertion site to stop the bleeding. You may be able to feel your pulse as you hold pressure. 2. Lift your finger after 5 minutes to see if the bleeding has stopped. 3. Once the bleeding has stopped, gently wipe the wrist area clean with a bandage. * If the bleeding from your wrist does not stop after 10 minutes, or if there is a large amount of bleeding or spurting, call 911 (do not drive yourself to the hospital). SKIN IRRITATION: * You may experience some redness and/or swelling in the area where radiation was administered. If any skin irritation occurs, please contact your family physician. Home Care: * Take your medications exactly as directed. Don't skip doses. * Remember that recovery after a heart attack takes time. Plan to rest for at lease 4-8 weeks while you recover. Then return to normal activity when your doctor says it's okay. * Ask your doctor about joining a heart rehabilitation program. * Tell your doctor if you are feeling depressed. Feelings of sadness are common after a heart attack, but it is important that you speak to someone if you are feeling overwhelmed by these feelings. * If you are having chest pain, call 911 for an ambulance. Do NOT drive yourself to the hospital. * Ask your family members to learn CPR. * Learn to take your own blood pressure and pulse. Keep a record of your results. Ask your doctor when you should seek emergency medical attention. He or she will tell you which blood pressure reading is dangerous. Lifestyle Changes: * Maintain a healthy weight. Get help to lose any extra pounds. * Cut back on salt. * Limit canned, dried, packaged, and fast foods. * Don't add salt to your food. * Season foods with herbs instead of salt when you cook. * Limit fatty foods. * Ask your doctor about having your lipid levels checked regularly. * Build up your activity according to your doctor's recommendation. * Ask your doctor when it's okay to resume sexual activity. * Try to manage stress. Follow Up: It is important for you to keep your follow up appointments with your medical provider. Pending Studies at Discharge: No Stand-Alone Forms: [facility] Medications and DC Order Prescriptions: New clopidogrel 75 mg Tablet 75 mg PO QAM Qty: 30 0RF Continued aspirin [Adult Low Dose Aspirin] 81 mg tablet,delayed release (DR/EC) 81 mg PO DAILY Qty: 30 2RF Rx Instructions: Unable to verify OTC meds at this date/time. sertraline 100 mg tablet 100 - 200 mg PO DAILY Qty: 180 3RF Rx Instructions: May take additional 100mg later in the day if needed for anxiety. Last filled 11/2023 x90 day supply. Unable to verify med w/ patient at this date/time. metformin 500 mg tablet 500 mg PO QPM Qty: 90 3RF Rx Instructions: after lunch ferrous gluconate 225 mg (27 mg iron) tablet 225 mg PO DAILY Qty: 90 3RF Rx Instructions: Unable to verify OTC meds at this date/time. gemfibrozil 600 mg tablet 600 mg PO BID 90 Days Qty: 180 3RF Vitamin C 1,000 mg Tablet Extended Release 1,000 mg PO QAM Rx Instructions: Unable to verify OTC meds at this date/time. multivitamin Tablet 1 tab PO QPM Rx Instructions: Unable to verify OTC meds at this date/time. atorvastatin 80 mg tablet 80 mg PO DAILY Rx Instructions: Last filled 11/2023 x90 day supply. Unable to verify med w/ patient at this date/time. Original Directions: 80mg by mouth daily hydroxyzine HCl 25 mg tablet 25 mg PO TID PRN (Reason: Anixety) Discharge Orders: Discharge Order (Routine); Ordered 03/10/24 Ordered By: Gloria Carmen/Other Patient Handouts: Managing Type 2 Diabetes Admission Data Admit Date/Time: 03/08/24 07:57 Attending Provider: Gloria Mo Admit Provider: Gloria Mo Primary Care Provider: Abdi Manuel Other Providers: Elliot Vergara; Hipolito Rodriguez Hospital Stay Data Consultations 03/08/24 06:20 ED Decision to Admit Stat 03/08/24 07:57 Consult Cardiology Routine Procedures Performed Operation Date: 03/08/24 12:00 Actual Procedures p Cineradiography w/Routine Exam - Elliot De La O MD p Cath, Left with Cors and Vent - Elliot De La O MD s IVUS Coronary Single Vessel - Elliot De La O MD s Drug Eluting Stent SGl Vessel - Elliot De La O MD s Drug Eluting Stent each ADDTL Vessel - Elliot De La O MD Diagnostic Imagining Performed 03/08/24 04:21 CT angio chest PE protocol Stat 03/08/24 10:39 CL Cath Imgs for PACS use only Routine 03/10/24 09:46 CL IVUS Coronary Single Vessel Routine ECHO Pending Results Patient Have Any Pending Studies at Discharge: No Discharge Instructions Given to Patient (Per Discharging Provider) You were admitted with angina and had 2 stents placed in your heart for severe blockages. This resolved your symptoms. Please continue taking both aspirin and the new blood thinner called Plavix (clopidrogel) every day to keep these stents from clotting off. Do not stop taking your blood thinners without first talking to your PCP or Systems Integrator. ACTIVITY RECOMMENDATIONS: Excess manipulation of the wrist should be avoided for the next 24-48 hours. * No lifting over 2 pounds (approximately a 1/2 gallon of milk) with the utilized arm for 24 hours. * No strenuous activity such as bowling or tennis for 3 days. * Keep the site of the procedure covered with a bandage for 24 hours. *You may shower the day after the procedure. Do not take a tub bath or submerge the puncture site in water for the next 3 days. *Do not operate any motorized equipment for 3 days. SPECIAL CARE INSTRUCTIONS: The site may be slightly bruised and sore following your procedure. Should any of the following occur, contact the Dr. who performed your procedure. 1. Redness/inflammation, swelling, chills, or fever, or colored drainage at procedure site within 3-7 days after your procedure. 2. Coldness, discoloration, ongoing numbness, severe pain, or swelling. Expect mild tingling of hand and tenderness at the puncture site for up to three days. If this persists beyond three days, or other symptoms develop, notify the Dr. who performed your procedure. BLEEDING: If the procedure site on your wrist begins to bleed, do not panic 1. Place 1 or 2 fingers firmly just slightly above the insertion site to stop the bleeding. You may be able to feel your pulse as you hold pressure. 2. Lift your finger after 5 minutes to see if the bleeding has stopped. 3. Once the bleeding has stopped, gently wipe the wrist area clean with a bandage. * If the bleeding from your wrist does not stop after 10 minutes, or if there is a large amount of bleeding or spurting, call 911 (do not drive yourself to the hospital). SKIN IRRITATION: * You may experience some redness and/or swelling in the area where radiation was administered. If any skin irritation occurs, please contact your family physician. Home Care: * Take your medications exactly as directed. Don't skip doses. * Remember that recovery after a heart attack takes time. Plan to rest for at lease 4-8 weeks while you recover. Then return to normal activity when your doctor says it's okay. * Ask your doctor about joining a heart rehabilitation program. * Tell your doctor if you are feeling depressed. Feelings of sadness are common after a heart attack, but it is important that you speak to someone if you are feeling overwhelmed by these feelings. * If you are having chest pain, call 911 for an ambulance. Do NOT drive yourself to the hospital. * Ask your family members to learn CPR. * Learn to take your own blood pressure and pulse. Keep a record of your results. Ask your doctor when you should seek emergency medical attention. He or she will tell you which blood pressure reading is dangerous. Lifestyle Changes: * Maintain a healthy weight. Get help to lose any extra pounds. * Cut back on salt. * Limit canned, dried, packaged, and fast foods. * Don't add salt to your food. * Season foods with herbs instead of salt when you cook. * Limit fatty foods. * Ask your doctor about having your lipid levels checked regularly. * Build up your activity according to your doctor's recommendation. * Ask your doctor when it's okay to resume sexual activity. * Try to manage stress. Follow Up: It is important for you to keep your follow up appointments with your medical provider. Total Time Total Time Spent Total Time Spent (In Minutes): 35 min Total Time Includes: Examination of the Patient, Discharge Planning, Medication Reconciliation and Communication With Other Providers Coding Level of Care Code 23378 INP/OBS DISCH >30 MIN Diagnoses Unstable angina I20.0 CAD (coronary artery disease) I25.10 Diabetes mellitus type 2, controlled E11.9 Iron deficiency anemia D50.9 Anxiety F41.9 Hyperlipidemia E78.5
[2024-03-10 12:35] VITALS: BP 110/58; PULSE 82
== END 2024-03-10 14:05 | disposition home or self-care (01) ==
LOC: SUATTDRO → ED 02:03 → 4W 02:03

== ENCOUNTER 2024-04-17 13:13 | Observation (INO) ==
[2024-04-17 13:50] LABS: Basophils # (auto) 0.04 K/uL (0.00-0.20); Basophils % (auto) 0.7 %; Eosinophils # (auto) 0.14 K/uL (0.00-0.50); Eosinophils % (auto) 2.4 %; Hematocrit (blood only) 36.4 % (37.0-47.0); Hemoglobin 12.2 g/dl (12.0-16.0); Immature Granulocytes # (auto) 0.02 K/uL (0.01-0.20); Immature Granulocytes % (auto) 0.3 %; Lymphocytes # (auto) 1.07 K/uL (1.20-3.40); Lymphocytes % (auto) 18.1 %; Mean Corpuscular Hemoglobin 30.7 pg (25.0-34.0); Mean Corpuscular Hgb Conc 33.5 g/dL (32.0-36.0); Mean Corpuscular Volume 91.5 fL (80.0-100.0); Mean Platelet Volume 9.7 fL (9.4-12.4); Monocytes # (auto) 0.55 K/uL (0.11-0.59); Monocytes % (auto) 9.3 %; Neutrophils % (auto) 69.2 %; Platelet Count 276 K/uL (130-400); RDW Coefficient of Variation 12.7 % (11.5-14.5); RDW Standard Deviation 41.4 fL (36.4-46.3); Red Blood Count 3.98 M/uL (4.20-5.40); White Blood Count 5.92 K/ul (4.8-10.8)
[2024-04-17 14:07] LABS: Albumin Globulin Ratio 1.5 (0.9-2); Albumin Level 4.6 gm/dl (3.4-5.0); BUN Creatinine Ratio 25.3 (10-20); Bilirubin,Total 0.4 mg/dl (0.2-1.0); Calcium 9.9 mg/dl (8.6-10.3); Creatinine Clr Calc Pharmacy 54.6 ml/min; Globulin 3.1 gm/dl (2.5-4.0); Total Protein 7.7 gm/dl (6.0-8.3)
[2024-04-17 14:15] LABS: Troponin I High Sensitivity 5.5 pg/ml (0-14)
[2024-04-17 14:20] LABS: Partial Thromboplastin Ratio 0.9; Partial Thromboplastin Time 24 Seconds (21-31); Prothrombin Time 10.8 Seconds (9.0-12.0)
--- NOTE | 2024-04-17 14:39 | Emergency Department Note ---
Impression & Plan Precordial chest pain, Extremity numbness, CAD (coronary atherosclerotic disease), Acute UTI ED Provider Note NAME: HEIDY DUNLAP AGE: 68 SEX: F : 1955 ARRIVES VIA: Walk-In INFORMANT: [Patient] ED PROVIDER(S): [Junior Clarke MD] CHIEF COMPLAINT: Cardiac assessment HISTORY OF PRESENT ILLNESS: The patient is a 68-year-old female who had 2 stents placed around a month ago for unstable angina. The patient has been on aspirin and Plavix. The patient states that last night, around 9 PM, she began noticing some numbness in both legs that spread to the chest. She felt tight across the chest. She was not short of breath. She was at rest when this all began. She had just sat down from walking. She states these are the same symptoms that were present before the stents were placed. The symptoms had improved after stent placement and have now returned. The patient states that today, she had similar's as noted last evening, and, she had some intermittent left chest pain. Because of the recent stent placement, because of her cardiac history, she presents for evaluation. The patient does state that right now, there is no chest pain, just some slight tingling in both legs. PMHx/PSHx/Social Hx: See Below PHYSICAL EXAM: GENERAL: Patient is in no acute distress. HEENT: No acute trauma, normocephalic atraumatic, mucous membranes moist, no nasal congestion. NECK: No stridor, no adenopathy, no meningismus, trachea is midline. LUNGS: Clear to auscultation bilaterally, no wheeze, no rhonchi, breath sounds equal. HEART: Without murmurs gallops or rubs, regular rate and rhythm. ABDOMEN: Soft, nontender, no peritonitis. EXTREMITIES: No cyanosis, full range of motion of all the joints without pain or difficulty. NEUROLOGIC: Oriented x 3, no acute motor or sensory deficits, no focal weakness. SKIN: No jaundice, no diaphoresis. DIFFERENTIAL DIAGNOSIS: Angina, [place], electrolyte imbalance, anxiety, anemia, among others. EMERGENCY DEPARTMENT PROCEDURES: MEDICAL DECISION MAKING: There is no leukocytosis or concerning anemia. There is a normal platelet count. No coagulopathy. No renal failure or significant electrolyte abnormality. No concerning liver enzyme elevation. The patient appeared to be in a euthyroid state. ECG shows a normal sinus rhythm, no ischemia or dysrhythmia. Cardiac enzyme testing x 1 is not consistent with acute cardiac injury. Chest x-ray does not show mediastinal widening, pneumonia or pneumothorax. Urinalysis is consistent with infection. Respiratory bio fire is pending. The patient presents with symptoms reminiscent of her previous angina and the need for coronary stenting. Initial troponin testing today returned unremarkable, ECG returned unremarkable. Patient was found to have a UTI, IV ceftriaxone was ordered. She received a 500 cc saline bolus. I did speak with cardiology. The patient will be hospitalized for further cardiac workup. She does have multivessel coronary disease and certainly, she may be having symptoms from a coronary lesion that was not stented. I suppose, her UTI could be playing into her presentation. For now, the patient will be hospitalized. I spoke with the patient about her findings, I did speak with case management, the on-call hospitalist was consulted. Prior/Outside records/notes reviewed: Discharge summary note from 03/10/2024 describing her presentation, hospital stay and plan at discharge. ECG per my interpretation: Indication was chest pain. The ECG shows a normal sinus rhythm with a rate of 88. There is poor R wave progression. There is no acute ST elevation, no PVCs. The QTc is 435. Continuous Cardiac Monitoring per my interpretation: An order was placed for continuous cardiac monitoring. The monitor shows a rate of 81 with normal sinus rhythm. Imaging/x-ray results per my interpretation: Chest x-ray does not show mediastinal widening, pneumonia or pneumothorax. Chronic Medical/Social conditions affecting care: Recent coronary stent placement x 2. Care/Management discussed with: Case management, the on-call hospitalist. Not any cardiology-Dr. Pitt Level of care consideration(s): After review of the information above and other included data: --I believe the patient requires escalation of care to admission DISPOSITION: Admission Past Med/Surg History Problem List (Updated 04/17/24 @ 15:55 by Junior Clarke MD) Acute UTI (Acute) CAD (coronary atherosclerotic disease) (Acute) Extremity numbness (Acute) Precordial chest pain (Acute) CAD (coronary artery disease) Changing skin lesion Onychomycosis Bilateral great toes Hyperlipidemia Encounter for pre-operative examination Anxiety (Acute) Chest pain on exertion (Acute) Chest pain (Acute) Diabetes mellitus type 2, controlled Iron deficiency anemia Renal calculus, left Medical History Abnormal stress test History of blood transfusion 26 yrs ago History of fainting at age 24, "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 Went to the ER at [facility]." Hx of chest pain ~10 years ago, went to ER, "found to be from acid reflux." Iron deficiency anemia Hx of peripheral neuropathy Diabetes mellitus, type 2 oral and injectable meds Urinary tract infection recently in ER with hematuria; currently on second round of antibiotics Hx of renal calculi LT. 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 Beliefs That Will Affect Care: None marital status: Current Living Situation: Spouse current occupational status: retired How many Children do You have: 2 How many Children do You have Comment: daughters Feels Safe at Home: Yes Childhood Exposure to Second-Hand Smoke: No Diet: diabetic caffeine: No during the past year weight has: decreased > 10 lbs Dental Care, Regularly: No Physical Activity Frequency: Daily Seatbelt Use: always Sunscreen Use: No Assistive Devices: None Allergies Allergies Allergy/AdvReac Type Severity Reaction Status Date / Time nickel Allergy Mild RASH Verified 04/08/24 11:28 Home Meds Home Medications Medication Instructions Recorded Confirmed multivitamin 1 tab PO QPM 01/15/22 04/17/24 ascorbic acid (vitamin C) 1,000 mg 1,000 mg PO QAM 01/31/22 04/17/24 tablet,extended release (Vitamin C ER) atorvastatin 80 mg tablet 80 mg PO DAILY 04/17/24 04/17/24 Previous Rx's Medication Instructions Recorded aspirin 81 mg tablet,delayed 81 mg PO DAILY #30 tabs 02/21/22 release (Adult Low Dose Aspirin) sertraline 100 mg tablet 100 - 200 mg (1 - 2 x 100 mg) PO 12/02/23 DAILY #180 tabs ferrous gluconate 225 mg (27 mg 225 mg PO DAILY #90 tabs 12/14/23 iron) tablet gemfibrozil 600 mg tablet 600 mg PO BID 90 days #180 tabs 12/14/23 clopidogrel 75 mg tablet 75 mg PO QAM #90 tabs 03/24/24 hydroxyzine HCl 25 mg tablet 25 mg PO TID PRN Anixety #90 tabs 03/24/24 semaglutide 0.25 mg or 0.5 mg (2 0.25 mg (0.368 mL) subcut Q7D #3 mL 04/08/24 mg/3 mL) subcutaneous pen injector (Ozempic) metformin 500 mg tablet See Rx Instructions .Route 04/11/24 .COMPLEX #90 tabs Results & Data (ED) Vital Signs Vital Signs - 24 hr 04/17/24 13:20 04/17/24 13:56 04/17/24 14:00 Temperature 36.8 C Temperature Source Temporal Artery Scan Pulse Rate 99 H 86 81 Respiratory Rate 22 22 Respiratory Depth Normal Blood Pressure 154/108 H 140/74 Blood Pressure Mean 123 96 Pulse Oximetry 97 97 Oxygen Delivery Method Room Air Room Air Sepsis Recent Fever Within 48 Hours No Sepsis New/Unexplained Change in Mental Status No Sepsis Action Taken by Nursing No Action Required Home Medications Current Medication List: was personally reviewed by me Laboratory Data Attestation: I reviewed the patient's lab results. 04/17/24 13:33 04/17/24 13:33 Lab Results 04/17/24 04/17/24 Range/Units 13:33 15:13 WBC 5.92 (4.8-10.8) K/ul RBC 3.98 L (4.20-5.40) M/uL Hgb 12.2 (12.0-16.0) g/dl Hct 36.4 L (37.0-47.0) % MCV 91.5 (80.0-100.0) fL MCH 30.7 (25.0-34.0) pg MCHC 33.5 (32.0-36.0) g/dL RDW Std Deviation 41.4 (36.4-46.3) fL RDW Coeff of Brianna 12.7 (11.5-14.5) % Plt Count 276 (130-400) K/uL MPV 9.7 (9.4-12.4) fL Immature Gran % (Auto) 0.3 % Neut % (Auto) 69.2 % Lymph % (Auto) 18.1 % [place] % (Auto) 9.3 % Eos % (Auto) 2.4 % Baso % (Auto) 0.7 % Neut # (Auto) 4.10 (1.40-6.50) K/uL Lymph # (Auto) 1.07 L (1.20-3.40) K/uL [place] # (Auto) 0.55 (0.11-0.59) K/uL Eos # (Auto) 0.14 (0.00-0.50) K/uL Baso # (Auto) 0.04 (0.00-0.20) K/uL Immature Gran # (Auto) 0.02 (0.01-0.20) K/uL PT 10.8 (9.0-12.0) Seconds INR 1.0 (0.9-1.1) APTT 24 (21-31) Seconds PTT Ratio 0.9 Sodium 140 (136-145) mmol/L Potassium 4.0 (3.5-5.1) mmol/L Chloride 108 H (98-107) mmol/L Carbon Dioxide 23 (21-32) mmol/L Anion Gap 9 (3-11) BUN 23 (6-23) mg/dl Creatinine 0.91 (0.6-1.2) mg/dl Est Cr Clr Drug Dosing 54.6 ml/min eGFR 68.29 BUN/Creatinine Ratio 25.3 H (10-20) Glucose 151 H (70-99(Fasting)) mg/dl Calcium 9.9 (8.6-10.3) mg/dl Magnesium 2.0 (1.7-2.4) mg/dl Total Bilirubin 0.4 (0.2-1.0) mg/dl AST 18 (13-39) U/L ALT 11 (7-52) U/L Alkaline Phosphatase 130 H (34-104) U/L Troponin I High Sens 5.5 (0-14) pg/ml Total Protein 7.7 (6.0-8.3) gm/dl Albumin 4.6 (3.4-5.0) gm/dl Globulin 3.1 (2.5-4.0) gm/dl Albumin/Globulin Ratio 1.5 (0.9-2) TSH 0.624 (0.300-4.500) uIu/ml Urine Color Yellow Urine Appearance Clear (Clear) Urine pH 5.0 (4.5-7.5) Ur Specific [place] 1.015 (1.000-1.030) Urine Protein Negative (Negative) Urine Glucose (UA) Negative (Negative) Urine Ketones Negative (Negative) Urine Blood Trace H (Negative) Urine Nitrite Positive A (Negative) Urine Bilirubin Negative (Negative) Urine Urobilinogen Negative (Negative) Ur Leukocyte Esterase 2+ H (Negative) Urine WBC (Auto) 11-20 H (0-5) /hpf Urine RBC (Auto) 6-10 H (0-2) /hpf U Hyaline Cast (Auto) 0-2 (0-2) /lpf U Epithel Cells (Auto) 0-2 (0-2) /hpf Urine Bacteria (Auto) 3+ H (None Seen) Administered Medications Discontinued Medications Sodium Chloride (Nss) 500 mls @ 999 mls/hr IV .Q31M ONE Stop: 04/17/24 14:58 Last Admin: 04/17/24 15:12 Dose: 999 mls/hr Documented By: [facility] Imaging Data Radiologist's Impression: Chest X-Ray 04/17/24 14:15 Chest radiograph, one view History: Chest pain Comparison: 03/08/2024 Findings: Single AP view of the chest performed. No focal consolidation or pleural effusion. No pneumothorax. The cardiomediastinal silhouette is within normal limits. Normal pulmonary vascularity. No evidence for lymphadenopathy. No visualized bony or soft tissue abnormality. Impression: Normal chest radiograph Electronically signed by Elliot Cox 04-17-2024 3:31 PM Discharge Plan Visit Data Chief Complaint: Cardiac Assessment Stated Complaint: FEET/LEGS NUMB LST NT, PAIN OVR HEART, CHEST HEAVY ED Provider: Junior Clarke Discharge Problem: Precordial chest pain, Extremity numbness, CAD (coronary atherosclerotic disease), Acute UTI Patient Disposition: Admitted As Inpatient Condition: Good Forms Stand Alone Forms: My [facility] Prescriptions Prescriptions: No Action aspirin [Adult Low Dose Aspirin] 81 mg tablet,delayed release (DR/EC) 81 mg PO DAILY Qty: 30 2RF sertraline 100 mg tablet 100 - 200 mg PO DAILY Qty: 180 3RF Rx Instructions: May take additional 100mg later in the day if needed for anxiety. Last filled 11/2023 x90 day supply. Unable to verify med w/ patient at this date/time. hydroxyzine HCl 25 mg tablet 25 mg PO TID PRN (Reason: Anixety) Qty: 90 1RF metformin 500 mg tablet See Rx Instructions .ROUTE .COMPLEX Qty: 90 1RF Dose Instruction: TAKE 1 TABLET BY MOUTH IN THE EVENING AFTER LUNCH Rx Instructions: TAKE 1 TABLET BY MOUTH IN THE EVENING AFTER LUNCH ferrous gluconate 225 mg (27 mg iron) tablet 225 mg PO DAILY Qty: 90 3RF gemfibrozil 600 mg tablet 600 mg PO BID 90 Days Qty: 180 3RF Ozempic 0.25 mg or 0.5 mg (2 mg/3 mL) pen injector 0.25 mg subcut Q7D Qty: 3 0RF clopidogrel 75 mg tablet 75 mg PO QAM Qty: 90 3RF Vitamin C 1,000 mg Tablet Extended Release 1,000 mg PO QAM multivitamin Tablet 1 tab PO QPM atorvastatin 80 mg tablet 80 mg PO DAILY Referrals Referrals: Abdi Manuel DO [Primary Care Provider] - Discharge Problem: CAD (coronary atherosclerotic disease) Qualifiers: Coronary Disease-Associated Artery/Lesion type: unspecified vessel or lesion type [place] vs. transplanted heart: [place] heart Associated angina: unspecified whether angina present Qualified Code(s): I25.10 - Atherosclerotic heart disease of [place] coronary artery without angina pectoris
[2024-04-17] MEDS: SODIUM CHLORIDE 0.9% 500 ML IV ONE (15:12)
[2024-04-17 15:23] LABS: Appearance Urine Clear (Clear); Bacteria Urine Automated 3+ (None Seen); Bilirubin Urine Negative (Negative); Blood Urine Trace (Negative); Cast Urine Automated 0-2 /lpf (0-2); Color Urine Yellow; Epithelial Cell Urine Auto 0-2 /hpf (0-2); Glucose Urine UA Negative (Negative); Ketones Urine Negative (Negative); Leukocyte Esterase Urine 2+ (Negative); Nitrite Urine Positive (Negative); Protein Urine Negative (Negative); Specific Gravity Urine 1.015 (1.000-1.030); Urobilinogen Urine Negative (Negative)
--- NOTE | 2024-04-17 15:31 | XRay Report ---
Chest radiograph, one view History: Chest pain Comparison: 03/08/2024 Findings: Single AP view of the chest performed. No focal consolidation or pleural effusion. No pneumothorax. The cardiomediastinal silhouette is within normal limits. Normal pulmonary vascularity. No evidence for lymphadenopathy. No visualized bony or soft tissue abnormality. Impression: Normal chest radiograph Electronically signed by Elliot Cox 04-17-2024 3:31 PM
[2024-04-17 15:41] LABS: Thyroid Stimulating Hormone 0.624 uIu/ml (0.300-4.500)
--- NOTE | 2024-04-17 15:47 | History & Physical Report ---
Date of Service April 17, 2024 Assessment & Plan (1) Chest pain, rule out acute myocardial infarction: Plan: Serial troponins Atypical pain but similar to pain she was having and resolved with cardiac stents with known multivessel disease Continue ASA, clopidogrel, atorvastatin, will defer addition of metoprolol to cardiology Consult cardiology, NPO after midnight to consider cardiac catheterization (2) Acute UTI: Plan: Urine frequency, burning and irritation for 4-5 days prior to admission IV ceftriaxone pending urine culture Plan VTE Prophylaxis - Lovenox 40mg SQ daily Diet - regular Disposition - observation to PCU Admission and Anticipated Discharge Date Admission Date: April 17, 2024 History of Present Illness Chief Complaint: Chest pain Primary Care Provider: Abdi Manuel DO Lani Rojas is a 68 year old female who presents to the ER with chest pain and bilateral leg numbness. She notes her current symptoms started last night around 10pm and were similar to her symptoms in March when she was diagnosed with unstable angina with subsequent cardiac catheterization and stents placed for severe multivessel disease in LAD/D1 bifurcation. She notes resolution of her symptoms last admission following cardiac stents. This chest pressure and bilateral leg numbness has persisted and she is still having this. However today she started having a new pain above her heart on the left side while walking around. This started around 9-10am, very mild, unknown exacerbating factors and would come on for a minute at a time. No associated nausea, diaphoresis or shortness of breath. On review of systems with her UA looking like an infection she reports urinary frequency, irritation and burning for the last 4-5 days. No back pain, fever or chills. History of kidney stones but nothing that sounds like this currently. Allergies Allergy/AdvReac Type Severity Reaction Status Date / Time nickel Allergy Mild RASH Verified 04/08/24 11:28 Home Medications Medication Instructions Recorded Confirmed Type multivitamin 1 tab PO QPM 01/15/22 04/17/24 History ascorbic acid (vitamin C) 1,000 mg 1,000 mg PO QAM 01/31/22 04/17/24 History tablet,extended release (Vitamin C ER) aspirin 81 mg tablet,delayed 81 mg PO DAILY #30 tabs 02/21/22 04/17/24 Rx release (Adult Low Dose Aspirin) sertraline 100 mg tablet 100 - 200 mg (1 - 2 x 100 mg) PO 12/02/23 04/17/24 Rx DAILY #180 tabs ferrous gluconate 225 mg (27 mg 225 mg PO DAILY #90 tabs 12/14/23 04/17/24 Rx iron) tablet gemfibrozil 600 mg tablet 600 mg PO BID 90 days #180 tabs 12/14/23 04/17/24 Rx clopidogrel 75 mg tablet 75 mg PO QAM #90 tabs 03/24/24 04/17/24 Rx hydroxyzine HCl 25 mg tablet 25 mg PO TID PRN Anixety #90 tabs 03/24/24 04/17/24 Rx semaglutide 0.25 mg or 0.5 mg (2 0.25 mg (0.368 mL) subcut Q7D #3 mL 04/08/24 04/17/24 Rx mg/3 mL) subcutaneous pen injector (Ozempic) metformin 500 mg tablet See Rx Instructions .Route 04/11/24 04/17/24 Rx .COMPLEX #90 tabs atorvastatin 80 mg tablet 80 mg PO DAILY 04/17/24 04/17/24 History Past Med/Surg History Problem List (Updated 04/17/24 @ 17:42 by Brandi Bloom) Chest pain, rule out acute myocardial infarction Acute UTI (Acute) CAD (coronary atherosclerotic disease) (Acute) Extremity numbness (Acute) Precordial chest pain (Acute) CAD (coronary artery disease) Changing skin lesion Onychomycosis Bilateral great toes Hyperlipidemia Encounter for pre-operative examination Anxiety (Acute) Chest pain on exertion (Acute) Chest pain (Acute) Diabetes mellitus type 2, controlled Iron deficiency anemia Renal calculus, left Medical History Abnormal stress test History of blood transfusion 26 yrs ago History of fainting at age 24, "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 Went to the ER at [facility]." Hx of chest pain ~10 years ago, went to ER, "found to be from acid reflux." Iron deficiency anemia Hx of peripheral neuropathy Diabetes mellitus, type 2 oral and injectable meds Urinary tract infection recently in ER with hematuria; currently on second round of antibiotics Hx of renal calculi LT. 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 Beliefs That Will Affect Care: None marital status: Current Living Situation: Spouse current occupational status: retired How many Children do You have: 2 How many Children do You have Comment: daughters Other Information That Helps Us Care for You: No Feels Safe at Home: Yes Safety Concerns: Feels Safe At This Time Childhood Exposure to Second-Hand Smoke: No Diet: diabetic caffeine: No during the past year weight has: decreased > 10 lbs Dental Care, Regularly: No Physical Activity Frequency: Daily Seatbelt Use: always Sunscreen Use: No Assistive Devices: None Physical Exam Constitutional: WD/WN, vitals as above Respiratory: normal respiratory effort, lungs clear to auscultation Cardiovascular: RRR, no murmur, no edema Gastrointestinal (Abdomen): normal bowel sounds, soft, nontender, no hepatosplenomegaly Skin: no rashes, warm and dry Neurologic: moves all extremities and awake; not confused Psychiatric: A+Ox3, euthymic affect Results & Data Results & Data Vital Signs (Past 12 Hours) Vital Signs Temp Pulse Resp BP Pulse Ox O2 Del Method 04/17/24 14:00 81 22 140/74 97 Room Air 04/17/24 13:56 86 04/17/24 13:20 36.8 C 99 H 22 154/108 H 97 Room Air Laboratory Results Abnormal lab results 04/17/24 04/17/24 Range/Units 13:33 15:13 RBC 3.98 L (4.20-5.40) M/uL Hct 36.4 L (37.0-47.0) % Lymph # (Auto) 1.07 L (1.20-3.40) K/uL Chloride 108 H (98-107) mmol/L BUN/Creatinine Ratio 25.3 H (10-20) Glucose 151 H (70-99(Fasting)) mg/dl Alkaline Phosphatase 130 H (34-104) U/L Urine Blood Trace H (Negative) Urine Nitrite Positive A (Negative) Ur Leukocyte Esterase 2+ H (Negative) Urine WBC (Auto) 11-20 H (0-5) /hpf Urine RBC (Auto) 6-10 H (0-2) /hpf Urine Bacteria (Auto) 3+ H (None Seen) Diagnostic Findings Chest radiograph, one view History: Chest pain Comparison: 03/08/2024 Findings: Single AP view of the chest performed. No focal consolidation or pleural effusion. No pneumothorax. The cardiomediastinal silhouette is within normal limits. Normal pulmonary vascularity. No evidence for lymphadenopathy. No visualized bony or soft tissue abnormality. Impression: Normal chest radiograph Medications Administered ER Medications Given: Ceftriaxone 2000mg IV Normal saline 500ml bolus ECG Rate (beats per minute): 88 Rhythm: normal sinus Findings: no acute ischemic change Comparison ECG Date: from (March 09, 2025) Change: no significant change Code Status & VTE Plan Code Status Full VTE Prophylaxis Plan VTE Prophylaxis will be ordered: Yes PG Care Time/CCT Total # of Minutes Spent Total Time Spent with Patient: Total time spent is greater than 50% in coordination of care (as documented) at patient's floor/unit and/or counseling patient: Coding Level of Care Code 30687 INT INP/OBS CARE 3/75MIN Diagnoses Chest pain, rule out acute myocardial infarction R07.9 Acute UTI N39.0
[2024-04-17] MEDS: cefTRIAXone SODIUM 2,000 MG/50 ML BAG IV STA (16:07)
[2024-04-17 16:10] LABS: Adenovirus PCR Not Detected (NotDetected); Bordetella parapertussis PCR Not Detected (NotDetected); Bordetella pertussis PCR Not Detected (NotDetected); Chlamydia pneumoniae PCR Not Detected (NotDetected); Coronavirus 229E PCR Not Detected (NotDetected); Coronavirus CoV-2 (COVID19)PCR Not Detected (NotDetected); Coronavirus HKU1 PCR Not Detected (NotDetected); Coronavirus NL63 PCR Not Detected (NotDetected); Coronavirus OC43PCR Not Detected (NotDetected); Human Metapneumovirus PCR Not Detected (NotDetected); Influenza A PCR Not Detected (NotDetected); Influenza B PCR Not Detected (NotDetected); Mycoplasma pneumoniae PCR Not Detected (NotDetected); Parainfluenza Virus 1 PCR Not Detected (NotDetected); Parainfluenza Virus 2 PCR Not Detected (NotDetected); Parainfluenza Virus 3 PCR Not Detected (NotDetected); Parainfluenza Virus 4 PCR Not Detected (NotDetected); Respiratory Syncytial VirusPCR Not Detected (NotDetected); Rhinovirus/Enterovirus PCR Not Detected (NotDetected)
[2024-04-17] MEDS: hydrOXYzine HCl 25 MG TAB PO STA (17:10)
[2024-04-17] MEDS: gemfibroziL 600 MG TAB PO SCH (20:26)
[2024-04-18] MEDS: CLOPIDOGREL BISULFATE 75 MG TAB PO SCH (09:57)
[2024-04-18] MEDS: ATORVASTATIN 40 MG TAB PO SCH (09:57)
[2024-04-18] MEDS: ASPIRIN 81 MG ECTAB PO SCH (09:57)
[2024-04-18] MEDS: SERTRALINE HCL 100 MG TABLET PO SCH (09:57)
[2024-04-18 11:12] VITALS: BP 119/74; PULSE 73; RESP 22; TEMP 98.4; O2SAT 97
[2024-04-18] MEDS: hydrOXYzine HCl 25 MG TAB PO PRN (11:14)
--- NOTE | 2024-04-18 11:17 | Cardiology Consultation ---
Date of Consultation April 18, 2024 Assessment & Plan (1) CAD (coronary atherosclerotic disease): Post PCI with DESx2 to LAD/diagonal bifurcation 03/2024 Known residual distal circumflex [employer] with left to left collaterals and small nondominant RCA [employer]. 2. Preserved LV functionecho 03/2024, small area of akinesis involving proximal inferior wall 3. Mild MR 4. Type 2 diabetes with peripheral neuropathy 5. 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 With hours of pain her HS TropI has been completely normal x 4 and ECG unchanged. With description of pain very low suspicion that chest pain is cardiac in nature and do not feel needs repeat ischemic testing at this time. Has been having intermittent chest pressure with more extended walking up hills. This is better since her PCI but still with mild symptoms in the setting of known [employer]. Beta-ozzy/antianginal therapy not started during last hospitalization in the setting of borderline blood pressures. Blood pressure stable to high during current admission and will start Toprol-XL 25 mg daily. From a cardiac standpoint okay with discharge to home today. Will arrange follow-up with cardiology sometime in the next month to titrate anti-anginal therapy. Recommended starting cardiac rehab as soon as able. In regards to lower extremity numbness suspect related to diabetic neuropathy. Lower extremities well-perfused and low suspicions due to PAD but will confirm with outpatient GRETCHEN/TBI. Does have evidence of CVI with varicose veins and will check venous reflux ultrasound as an outpatient. History of Present Illness Attending Physician: Gloria Mo MD History of Present Illness Ms. Rojas is a very pleasant 68-year-old woman with a history of multivessel CAD post recent complex PCI who was admitted yesterday with atypical chest symptoms. Patient previously seen by Dr. Buenrostro for chest pain. Was scheduled to undergo CTA but had recurrent symptoms at rest 03/2024 leading to admission. Mildly elevated HS TropI that time and underwent cardiac catheterization which revealed severe earlymid LAD disease and severe first diagonal disease which was treated with 2 drug-eluting stents. Was also noted at that time to have an occluded distal circumflex which fills via left to left collaterals and occluded small nondominant RCA. Since discharge she has done well. Has had some improvement and chest pressure that she was getting while walking her dog. Has not seen cardiac rehab yet. Continues to take DAPT with aspirin, clopidogrel uninterrupted. The day before admission developed recurrent sharp chest pain somewhat similar to what she had before but different than her chest pressure with walking. She also was having issues with burning in her legs (carries diagnosis of peripheral neuropathy) and having new urinary symptoms. Presented to ED where HS TropI has been negative x 4. ECG unchanged. UA abnormal and being treated for UTI. Telemetry has been unremarkable since admission. Today she is chest pain-free. Her primary concerns are regards to her lower extremity numbness and pain. Allergies Allergy/AdvReac Type Severity Reaction Status Date / Time nickel Allergy Mild RASH Verified 04/08/24 11:28 Home Medications Medication Instructions Recorded Confirmed Type multivitamin 1 tab PO QPM 01/15/22 04/17/24 History ascorbic acid (vitamin C) 1,000 mg 1,000 mg PO QAM 01/31/22 04/17/24 History tablet,extended release (Vitamin C ER) aspirin 81 mg tablet,delayed 81 mg PO DAILY #30 tabs 02/21/22 04/17/24 Rx release (Adult Low Dose Aspirin) sertraline 100 mg tablet 100 - 200 mg (1 - 2 x 100 mg) PO 12/02/23 04/17/24 Rx DAILY #180 tabs ferrous gluconate 225 mg (27 mg 225 mg PO DAILY #90 tabs 12/14/23 04/17/24 Rx iron) tablet gemfibrozil 600 mg tablet 600 mg PO BID 90 days #180 tabs 12/14/23 04/17/24 Rx clopidogrel 75 mg tablet 75 mg PO QAM #90 tabs 03/24/24 04/17/24 Rx hydroxyzine HCl 25 mg tablet 25 mg PO TID PRN Anixety #90 tabs 03/24/24 04/17/24 Rx semaglutide 0.25 mg or 0.5 mg (2 0.25 mg (0.368 mL) subcut Q7D #3 mL 04/08/24 04/17/24 Rx mg/3 mL) subcutaneous pen injector (Ozempic) metformin 500 mg tablet See Rx Instructions .Route 04/11/24 04/17/24 Rx .COMPLEX #90 tabs atorvastatin 80 mg tablet 80 mg PO DAILY 04/17/24 04/17/24 History cephalexin 500 mg capsule 500 mg PO BID #8 caps 04/18/24 Rx metoprolol succinate 25 mg 25 mg PO QAM 30 days #30 tabs 04/18/24 Rx tablet,extended release 24 hr Patient History Medical History Abnormal stress test History of blood transfusion 26 yrs ago History of fainting at age 24, "she hemorrhaged during a [employer] exam and passed out. Went to the ER at [facility]." Hx of chest pain ~10 years ago, went to ER, "found to be from acid reflux." Iron deficiency anemia Hx of peripheral neuropathy Diabetes mellitus, type 2 oral and injectable meds Urinary tract infection recently in ER with hematuria; currently on second round of antibiotics Hx of renal calculi LT. Anxiety Surgical History Hx of vaginal surgery Hx of section Hx of colonoscopy Garner teeth extracted Family History Sister Breast cancer Mother Diabetes Father Myocardial infarction Other Heart disease Denies family history of Ovarian cancer Prostate cancer Colorectal cancer Social History Smoking Status: Never smoker Second Hand Exposure: No; Do You Dip or Chew Tobacco: No; Hx Alcohol Use: No Hx Substance Use: No Preferred Language: Italian Communication Ability: Effective Visual Impairment: No Limitations Hearing Ability: Hard of Hearing Panel Gluer Required: No Beliefs That Will Affect Care: None marital status: Current Living Situation: Spouse current occupational status: retired How many Children do You have: 2 How many Children do You have Comment: daughters Other Information That Helps Us Care for You: No Feels Safe at Home: Yes Safety Concerns: Feels Safe At This Time Childhood Exposure to Second-Hand Smoke: No Diet: diabetic caffeine: No during the past year weight has: decreased > 10 lbs Dental Care, Regularly: No Physical Activity Frequency: Daily Seatbelt Use: always Sunscreen Use: No Assistive Devices: None Review of Systems Review of Systems: All systems reviewed & are unremarkable except as noted in HPI & below Physical Exam Physical Exam: General: Comfortable HEENT: Sclerae anicteric Lungs: Clear to auscultation bilaterally, no crackles or wheezes Cardiac: Regular rate and rhythm, no murmurs. Vascular: 2+ radial, 1+ DP pulses bilaterally. Diminished PT pulses. Has varicose veins above and below the knee. No hyperpigmentation. Abdomen: Soft, nontender Extremities: Well perfused, no peripheral edema Neuro: Decree sensation to light touch in bilateral lower extremities. Psych: Alert orient x3, normal affect and mood Results & Data Vital Signs (Past 12 Hours) Vital Signs Temp Pulse Pulse Resp BP Pulse Ox O2 Del Method 04/18/24 08:46 98.2 F 79 19 140/80 95 Room Air 04/18/24 08:18 65 04/18/24 03:38 97.9 F 66 18 129/56 L 95 Room Air 04/17/24 23:18 97.5 F L 70 16 121/79 97 Room Air PG Care Time/CCT Total # of Minutes Spent Total Time Spent with Patient: Total time spent is greater than 50% in coordination of care (as documented) at patient's floor/unit and/or counseling patient: Coding Level of Care Code 47132 INT INP/OBS CARE MIN Diagnoses CAD (coronary atherosclerotic disease) I25.10 Associated angina: unspecified whether angina present Coronary Disease-Associated Artery/Lesion type: unspecified vessel or lesion type [place] vs. transplanted heart: shawnee heart (1) CAD (coronary atherosclerotic disease) Associated angina: unspecified whether angina present Coronary Disease- Associated Artery/Lesion type: unspecified vessel or lesion type [place] vs. transplanted heart: shawnee heart Qualified Code(s): I25.10 - Atherosclerotic heart disease of [place] coronary artery without angina pectoris
--- NOTE | 2024-04-18 11:46 | Discharge Summary ---
Discharge Summary Date of Service April 18, 2024 Principal Dx & Hospital Course #1 = Principal Diagnosis (1) Chest pain, rule out acute myocardial infarction: Atypical pain but similar to her episode requiring stent placement. Troponin negative x4. bio fire negative. Atypical pain has resolved. Seen by cardiology - not plan for intervention this stay. Continue ASA, clopidogrel, atorvastatin. Metoprolol XL 25mg daily added. Plan for cardiac rehab outpatient. Cardiology planning to arrange GRETCHEN/TBI. Also with leg numbness/tingling that was similar to her prior episode. This is only the second time as had occurred. Not radiating to the hips, states it feels different from when she had issues with her sciatica. B12 level normal. Possible diabetic neuropathy, patient declining medications at this time as infrequent and will continue workup for other possible causes. (2) Acute UTI: UA consistent with infection. Received IV ceftriaxone. urine culture with E. coli, sensitivities pending. Discharged with Keflex Plan dispo: Discharge to home today with plans for cardiac rehab Discussed case with Dr. De La O, cardiology updated daughter by phoneshe reports that Lani has a lot of caregiver burden caring for her bed ridden/homebound . Inquiring how to receive more help for him, encouraged discussion with 's PCP also asked case management to provide a list of private duty caregivers. Notes For Next Care Provider urine sensitivities pending at discharge but Keflex was prescribed Needs cardiac rehab Medication Changes From Visit Metoprolol XL 25 mg every morning Keflex twice daily x 4 days Admission HPI Per Admitting Provider Lani Rojas is a 68 year old female who presents to the ER with chest pain and bilateral leg numbness. She notes her current symptoms started last night around 10pm and were similar to her symptoms in March when she was diagnosed with unstable angina with subsequent cardiac catheterization and stents placed for severe multivessel disease in LAD/D1 bifurcation. She notes resolution of her symptoms last admission following cardiac stents. This chest pressure and bilateral leg numbness has persisted and she is still having this. However today she started having a new pain above her heart on the left side while walking around. This started around 9-10am, very mild, unknown exacerbating factors and would come on for a minute at a time. No associated nausea, diaphoresis or shortness of breath. On review of systems with her UA looking like an infection she reports urinary frequency, irritation and burning for the last 4-5 days. No back pain, fever or chills. History of kidney stones but nothing that sounds like this currently. Discharge Exam General: NAD, VS as above, appears well, but fatigued Resp: normal respiratory effort, lungs clear to auscultation CV: RRR, no murmur, Abd: normal bowel sounds, non tender, no hepatosplenomegaly Extremities: Moves all extremities, no edema Neuro: A&O x3, Skin: intact, no lesions noted Discharge Plan Discharge Items Patient Disposition: Home - Self-Care Reason For Visit: CHEST PAIN RULE OUT SC Discharge Diagnosis: Chest pain, resolved Condition on Discharge: Good Activity: Resume your previous activity Weightbearing: Full weightbearing Non-emergency contact: Primary Care Provider Call non-emergency contact if: you have any medication questions, your symptoms worsen, your pain is unusual for you and your temperature is above 101 Follow-up/Referrals: Dago Buenrostro MD, PhD [Physician] - (f/u within 1 month Patient wants to schedule her follow up) Abdi Manuel DO [Primary Care Provider] - (follow up 7-10 days Patient wants to schedule her follow up ) Diet: Carb Consistent or DM2 and Heart Healthy Addtl Attending Provider Instructions: Ms. Rojas, You were hospitalized after having repeat episodes of chest pressure and numbness and tingling down your legs. Thankfully, this was found to be not related to your heart. There are a few things that may be contributing to your leg symptoms - diabetes - continue following a carb consistent diet, following with your PCP - low B12 - your B12 levels were normal in 2022, repeat is pending, may need replacement - vein disease - cardiology is working on setting up continued testing for th is You can continue to exercise as able. Dr. De La O has recommended you start Metoprolol, this has been given to you while you were here and sent to your pharmacy. If you are feeling lightheaded or dizziness since taking this please call your shafting worker. If you do not here from cardiac rehab by the end of the week, please reach out to the cardiology office to inquire. You were also found to have a urinary tract infection - you will be continued on oral antibiotics - Keflex. This is twice a day, please take the first dose with dinner tonight. Medications: Your medication list has been reviewed and reconciled upon discharge to ensure accuracy and continuity of care. An updated list of all your medications is included with your hospital discharge paperwork. Please review this list closely, and make note of any changes. Take your medications as instructed; do not skip a dose of your medicines. Make sure all of your doctors know every medicine you are taking (including moci-zis-pxfptwm medicines, vitamins, and supplements). Call your primary care provider before taking any new medicines (including over- the-counter medicines, vitamins, and supplements), because some of these may interact with your current medications, or may make your symptoms worse. Tell your primary care provider if you cannot afford your medications. Activity: You can do normal everyday activities as your body allows. Take rest breaks if you feel tired. Do not overexert. Stop activity if you have pain, shortness of breath or feel dizzy. Follow-up appointments: Make an appointment with your primary care physician within one week of discharge. A copy of this summary will be sent to them. Every time you see your primary care physician, or any other doctor, bring your medication list, and a list of questions. CONTACT YOUR PRIMARY CARE PROVIDER if you experience any of the following: Shortness of breath or difficulty breathing Fevers or chills Feeling tired with normal activity or experiencing dizziness or fainting Difficulty following your treatment plan, or difficulty taking medications CALL 911 OR GO TO THE EMERGENCY DEPARTMENT if you experience any of the following: Severe abdominal pain or nausea/vomiting Severe chest pain, or chest pain that radiates (moves) to your jaw or arm Sudden, severe shortness of breath or difficulty breathing Thank you for allowing us to participate in your care. Demi Bruno PA-C Pending Studies at Discharge: Yes (B12, urine culture ) Stand-Alone Forms: [facility], Smoking Cessation Medications and DC Order Prescriptions: New cephalexin 500 mg Capsule 500 mg PO BID Qty: 8 0RF metoprolol succinate 25 mg Tablet Extended Release 24 Hr 25 mg PO QAM 30 Days Qty: 30 0RF Continued aspirin [Adult Low Dose Aspirin] 81 mg tablet,delayed release (DR/EC) 81 mg PO DAILY Qty: 30 2RF sertraline 100 mg tablet 100 - 200 mg PO DAILY Qty: 180 3RF Rx Instructions: May take additional 100mg later in the day if needed for anxiety. Last filled 11/2023 x90 day supply. Unable to verify med w/ patient at this date/time. hydroxyzine HCl 25 mg tablet 25 mg PO TID PRN (Reason: Anixety) Qty: 90 1RF metformin 500 mg tablet See Rx Instructions .ROUTE .COMPLEX Qty: 90 1RF Dose Instruction: TAKE 1 TABLET BY MOUTH IN THE EVENING AFTER LUNCH Rx Instructions: TAKE 1 TABLET BY MOUTH IN THE EVENING AFTER LUNCH ferrous gluconate 225 mg (27 mg iron) tablet 225 mg PO DAILY Qty: 90 3RF gemfibrozil 600 mg tablet 600 mg PO BID 90 Days Qty: 180 3RF Ozempic 0.25 mg or 0.5 mg (2 mg/3 mL) pen injector 0.25 mg subcut Q7D Qty: 3 0RF clopidogrel 75 mg tablet 75 mg PO QAM Qty: 90 3RF Vitamin C 1,000 mg Tablet Extended Release 1,000 mg PO QAM multivitamin Tablet 1 tab PO QPM atorvastatin 80 mg tablet 80 mg PO DAILY Discharge Orders: Discharge Order (Routine); Ordered 04/18/24 Ordered By: Demi Bruno Admission Data Admit Date/Time: 04/17/24 15:41 Attending Provider: Gloria Mo Admit Provider: Yuan Mendez Primary Care Provider: Abdi Manuel Other Providers: Yuan Mendez; Easton Pitt Other Interventions: Discharge Summary Assessment (RN) Last Done: 04/18/24 13:08 Hospital Stay Data Consultations 04/17/24 14:57 ED Decision to Admit Stat 04/17/24 16:55 Consult Cardiology Routine Diagnostic Imagining Performed Chest X-Ray 04/17/24 14:15 Chest radiograph, one view History: Chest pain Comparison: 03/08/2024 Findings: Single AP view of the chest performed. No focal consolidation or pleural effusion. No pneumothorax. The cardiomediastinal silhouette is within normal limits. Normal pulmonary vascularity. No evidence for lymphadenopathy. No visualized bony or soft tissue abnormality. Impression: Normal chest radiograph Electronically signed by Elliot Cox 04-17-2024 3:31 PM Pending Results Patient Have Any Pending Studies at Discharge: Yes (B12, urine culture ) Discharge Instructions Given to Patient (Per Discharging Provider) Ms. Rojas, You were hospitalized after having repeat episodes of chest pressure and numbness and tingling down your legs. Thankfully, this was found to be not related to your heart. There are a few things that may be contributing to your leg symptoms - diabetes - continue following a carb consistent diet, following with your PCP - low B12 - your B12 levels were normal in 2022, repeat is pending, may need replacement - vein disease - cardiology is working on setting up continued testing for this You can continue to exercise as able. Dr. De La O has recommended you start Metoprolol, this has been given to you while you were here and sent to your pharmacy. If you are feeling lightheaded or dizziness since taking this please call your shafting worker. If you do not here from cardiac rehab by the end of the week, please reach out to the cardiology office to inquire. You were also found to have a urinary tract infection - you will be continued on oral antibiotics - Keflex. This is twice a day, please take the first dose with dinner tonight. Medications: Your medication list has been reviewed and reconciled upon discharge to ensure accuracy and continuity of care. An updated list of all your medications is included with your hospital discharge paperwork. Please review this list closely, and make note of any changes. Take your medications as instructed; do not skip a dose of your medicines. Make sure all of your doctors know every medicine you are taking (including oume-hic-ddrepwj medicines, vitamins, and supplements). Call your primary care provider before taking any new medicines (including over- the-counter medicines, vitamins, and supplements), because some of these may interact with your current medications, or may make your symptoms worse. Tell your primary care provider if you cannot afford your medications. Activity: You can do normal everyday activities as your body allows. Take rest breaks if you feel tired. Do not overexert. Stop activity if you have pain, shortness of breath or feel dizzy. Follow-up appointments: Make an appointment with your primary care physician within one week of discharge. A copy of this summary will be sent to them. Every time you see your primary care physician, or any other doctor, bring your medication list, and a list of questions. CONTACT YOUR PRIMARY CARE PROVIDER if you experience any of the following: Shortness of breath or difficulty breathing Fevers or chills Feeling tired with normal activity or experiencing dizziness or fainting Difficulty following your treatment plan, or difficulty taking medications CALL 911 OR GO TO THE EMERGENCY DEPARTMENT if you experience any of the following: Severe abdominal pain or nausea/vomiting Severe chest pain, or chest pain that radiates (moves) to your jaw or arm Sudden, severe shortness of breath or difficulty breathing Thank you for allowing us to participate in your care. Demi Bruno PA-C Supervising Physician Co-Signing Physician Notes PA Supervision Note: I did not personally see or examine the patient today, but I verified all sierra points of ZAINA Bruno's assessment and plan with the following exceptions/additions: None Total Time Total Time Spent Total Time Spent (In Minutes): Time spent day of discharge 35 minutes including direct patient care, medication reconciliation, documentation, review of labs and images, and coordination of care. Coding Level of Care Code 63378 INP/OBS DISCH >30 MIN Diagnoses Chest pain, rule out acute myocardial infarction R07.9 Acute UTI N39.0
[2024-04-18] MEDS: METOPROLOL SUCC 25MG EXT REL TAB PO SCH (11:52)
[2024-04-18] MEDS: metFORMIN HCL 500 MG TAB PO SCH (11:53)
[2024-04-18] MEDS ORDERED: cephALEXin 500 MG CAP PO SCH (21:00)
--- NOTE | 2024-04-19 22:32 | Electrocardiogram Report ---
Test Reason : Blood Pressure : */* mmHG Vent. Rate : 88 BPM Atrial Rate : 88 BPM P-R Int : 166 ms QRS Dur : 82 ms QT Int : 360 ms P-R-T Axes : 66 28 36 degrees QTcB Int : 435 ms Normal sinus rhythm Cannot rule out Anterior infarct (cited on or before 09-Mar-2024) Abnormal ECG When compared with ECG of 09-Mar-2024 13:35, No significant change was found Confirmed by Easton Pitt ([id number]) on 04/19/2024 10:31:26 PM Referred By: REFERRED SELF Confirmed By: Easton Pitt
== END 2024-04-18 14:58 | disposition home or self-care (01) ==
LOC: ED 13:13 → 2S 13:13 → SUATTDRO 15:41 → 2S 17:02
DX: Z95.5 Presence of coronary angioplasty implant and graft; E11.42 Type 2 diabetes mellitus with diabetic polyneuropathy; N39.0 Urinary tract infection, site not specified; Z79.85 Long-term (current) use of injectable non-insulin antidiabetic drugs; R07.9 Chest pain, unspecified; I25.10 Atherosclerotic heart disease of native coronary artery without angina pectoris; Z79.84 Long term (current) use of oral hypoglycemic drugs; Z79.82 Long term (current) use of aspirin; Z82.49 Family history of ischemic heart disease and other diseases of the circulatory system; Z79.899 Other long term (current) drug therapy; I34.0 Nonrheumatic mitral (valve) insufficiency

== ENCOUNTER 2024-11-26 12:31 | Observation (INO) ==
[2024-11-26 13:03] LABS: Hematocrit (blood only) 36.2 % (37.0-47.0); Hemoglobin 12.2 g/dl (12.0-16.0); Immature Granulocytes # (auto) 0.03 K/uL (0.01-0.20); Immature Granulocytes % (auto) 0.5 %; Mean Corpuscular Hemoglobin 31.4 pg (25.0-34.0); Mean Corpuscular Volume 93.1 fL (80.0-100.0); Platelet Count 254 K/uL (130-400); RDW Standard Deviation 44.6 fL (36.4-46.3); Red Blood Count 3.89 M/uL (4.20-5.40); White Blood Count 5.76 K/ul (4.8-10.8)
[2024-11-26 13:21] LABS: Alanine Aminotransferase 9.0 U/L (7-52); Albumin Globulin Ratio 1.4 (0.9-2); Alkaline Phosphatase 104.0 U/L (34-104); Anion Gap 7.0 (3-11); Bilirubin,Total 0.5 mg/dl (0.2-1.0); Blood Urea Nitrogen 26.0 mg/dl (6-23); Calcium 9.8 mg/dl (8.6-10.3); Carbon Dioxide 22.0 mmol/L (21-32); Chloride 110.0 mmol/L (98-107); Creatinine Clr Calc Pharmacy 53.3 ml/min; Globulin 3.3 gm/dl (2.5-4.0); Glucose 177.0 mg/dl (70-99(Fasting)); Lipase 62.0 U/L (11-82); Potassium 3.8 mmol/L (3.5-5.1); Sodium 139.0 mmol/L (136-145); Total Protein 7.8 gm/dl (6.0-8.3)
--- NOTE | 2024-11-26 13:39 | Emergency Department Note ---
Impression & Plan Chest pain ED Provider Note NAME: HEIDY DUNLAP AGE: 69 SEX: Female INFORMANT: Patient ED PROVIDER(S): Ammon Orr MD CHIEF COMPLAINT: Chest pain PLAN: Disposition: Admitted Outpatient prescription management: none Referral: None MEDICAL DECISION MAKING: Patient presented because of chest pain. History was concerning due to her cardiac event in the past. Patient underwent a workup. Her CBC and chemistry panel unremarkable. ECG and cardiac troponin did not reveal any obvious ischemia however the patient was pain-free at the time. Given her history further evaluation and management will be necessary in the hospital. Consultation was made with hospitalist service. Patient was in agreement. Patient was evaluated in the ER and admitted for further management. Care/management discussed with: manager pmo Level of care consideration(s): After review of the information above and other included data, I feel the patient requires escalation of care to admission Triage Nursing notes: reviewed and agree them. Vital Signs: reviewed and remarkable for no significant abnormalities Additional History obtained from: none Chronic Medical/Social Conditions affecting care: CAD Prior/ Outside/ External records reviewed: none Differential Diagnosis: Cardiac ischemia, aortic dissection, pulmonary embolism, pneumothorax, pneumonia, pericarditis, myocarditis, esophageal rupture, GERD, cholecystitis, pancreatitis, musculoskeletal, as well as other pathologies. Diagnostics, independently interpreted by me: ECG: Twelve-lead ECG reveals normal sinus rhythm at 82 bpm. Anterior Q waves present. No ST elevation. Cardiac Monitoring: Cardiac monitoring ordered by me: The patient was placed on continuous cardiac monitoring and observed. It revealed a normal sinus rhythm at 80 beats per minute without ectopy or evidence of dysrhythmia. Medical decision rules: none Imaging studies: Chest x-ray. Findings: A chest x-ray was performed and revealed no pneumothorax, effusion, infiltrate, pulmonary edema, free air under the diaphragm, or wide mediastinum. Impression: No acute disease. HPI: 69 year old Female arrives for evaluation of chest pain. This started last night and is intermittent. The patient also notes the following associated symptoms, discomfort radiating to the neck, arms and shoulders. Patient states she feels tingly all over as well. The patient has taken aspirin and her normal medications for relieving factors. Current pain is rated as 0/10. Last episode of pain was about an hour prior to arrival pt denies LOC, headache, fevers, chills, diaphoresis, visual changes, breathing difficulties, nausea, vomiting, abdominal pain, back pain, melena, hematochezia, urinary symptoms, numbness, weakness, lymphadenopathy, rash, or other complaints. PAST MEDICAL HISTORY: See Below, CAD PAST SURGICAL HISTORY: See Below, coronary stenting SOCIAL HISTORY: See Below, non-smoker HOME MEDICATIONS: See Below ALLERGIES: See Below VITALS: See Below PHYSICAL EXAMINATION: GENERAL: Awake, alert, well-appearing, in no distress HENT: Normocephalic, atraumatic. Oropharynx unremarkable. EYES: Normal conjunctiva. Sclera non-icteric. NECK: Inspection normal. Non-tender. Supple. No nuchal rigidity. FROM. No masses. RESPIRATORY: Clear to auscultation. No wheezes. No rales. Normal respiratory effort. CARDIAC: Normal rate. Normal rhythm. No murmurs. No rubs. Extremities warm and well perfused. Pulses equal. No JVD. GI: Soft, non-distended. No tenderness to palpation. No rebound or guarding. No masses. RECTAL: Deferred. MUSCULOSKELETAL: Atraumatic. Chest examination reveals no tenderness. The back is symmetrical on inspection without obvious abnormality. There is no CVA tenderness to palpation. No joint edema. LOWER EXTREMITIES: Calves are equal size bilaterally and non-tender. No edema. No discoloration. NEURO: Normal sensorium. No sensory or motor deficits noted. SKIN: No rash or jaundice noted. PROCEDURES: none CRITICAL CARE: none OBSERVATION NOTE: none Past Med/Surg History Problem List (Updated 11/27/24 @ 12:27 by Eladio Quezada MD) Non-cardiac chest pain Chest pain (Acute) Numbness and tingling Mild cognitive impairment Tremor Fatigue Memory impairment Multiple thyroid nodules CAD (coronary artery disease) Changing skin lesion Onychomycosis Bilateral great toes Hyperlipidemia Encounter for pre-operative examination Anxiety (Acute) Chest pain on exertion (Acute) Chest pain (Acute) Diabetes mellitus type 2, controlled Iron deficiency anemia Renal calculus, left Medical History Chest pain, rule out acute myocardial infarction Acute UTI CAD (coronary atherosclerotic disease) Extremity numbness Precordial chest pain Abnormal stress test History of blood transfusion History of fainting Hx of chest pain Iron deficiency anemia Hx of peripheral neuropathy Diabetes mellitus, type 2 Urinary tract infection Hx of renal calculi Anxiety Surgical History Hx of vaginal surgery Hx of section Hx of colonoscopy [place] teeth extracted Family History Sister Breast cancer Mother Diabetes Father Myocardial infarction Other Heart disease Denies family history of Ovarian cancer Prostate cancer Colorectal cancer Social History Smoking Status: Never smoker Second Hand Exposure: No; Do You Dip or Chew Tobacco: No; Hx Alcohol Use: No Hx Substance Use: No Preferred Language: Indonesian Communication Ability: Effective Visual Impairment: No Limitations Hearing Ability: Hard of Hearing Student Counsellor Required: No Beliefs That Will Affect Care: None marital status: Current Living Situation: Spouse Current Living Situation Comment: lives with , is his FT caregiver current occupational status: retired How many Children do You have: 2 How many Children do You have Comment: daughters Feels Safe at Home: Yes Childhood Exposure to Second-Hand Smoke: No Diet: diabetic caffeine: No during the past year weight has: decreased > 10 lbs Dental Care, Regularly: No Physical Activity Frequency: Daily Seatbelt Use: always Sunscreen Use: No Assistive Devices: Glasses Allergies Allergies Allergy/AdvReac Type Severity Reaction Status Date / Time nickel Allergy Mild RASH Verified 11/26/24 15:44 Home Meds Home Medications Medication Instructions Recorded Confirmed multivitamin 1 tab PO QPM 01/15/22 11/26/24 atorvastatin 80 mg tablet 80 mg PO QAM 11/26/24 11/26/24 hydroxyzine HCl 25 mg tablet 25 mg PO HS 11/26/24 11/26/24 magnesium 250 mg tablet 250 mg PO DAILY 11/26/24 11/26/24 omeprazole 40 mg capsule,delayed 40 mg PO QAM 11/26/24 11/26/24 release sertraline 100 mg tablet 100 mg PO BID 11/26/24 11/26/24 Previous Rx's Medication Instructions Recorded aspirin 81 mg tablet,delayed 81 mg PO DAILY #30 tabs 02/21/22 release (Adult Low Dose Aspirin) ferrous gluconate 225 mg (27 mg 225 mg PO DAILY #90 tabs 12/14/23 iron) tablet gemfibrozil 600 mg tablet 600 mg PO BID 90 days #180 tabs 12/14/23 clopidogrel 75 mg tablet 75 mg PO QAM #90 tabs 09/30/24 semaglutide 0.25 mg or 0.5 mg (2 0.5 mg (0.736 mL) subcut Q7D #3 mL 10/03/24 mg/3 mL) subcutaneous pen injector (Ozempic) Results & Data (ED) Vital Signs Vital Signs - 24 hr 11/26/24 12:39 11/26/24 12:50 11/26/24 12:52 Temperature 36.6 C Temperature Source Oral Pulse Rate 80 84 Pulse Rhythm Regular Respiratory Rate 15 Respiratory Effort / Characteristics Non-Labored Respiratory Depth Normal Blood Pressure 141/79 H Blood Pressure Mean 99 Pulse Oximetry 95 95 Oxygen Delivery Method Room Air Room Air Sepsis Recent Fever Within 48 Hours No Sepsis New/Unexplained Change in Mental Status N/A Sepsis Action Taken by Nursing No Action Required 11/26/24 12:52 Temperature Temperature Source Pulse Rate 80 Pulse Rhythm Regular Respiratory Rate 16 Respiratory Effort / Characteristics Respiratory Depth Blood Pressure Blood Pressure Mean Pulse Oximetry 95 Oxygen Delivery Method Room Air Sepsis Recent Fever Within 48 Hours Sepsis New/Unexplained Change in Mental Status Sepsis Action Taken by Nursing Laboratory Data 11/27/24 06:00 11/27/24 06:00 Lab Results 11/26/24 Range/Units 12:47 WBC 5.76 (4.8-10.8) K/ul RBC 3.89 L (4.20-5.40) M/uL Hgb 12.2 (12.0-16.0) g/dl Hct 36.2 L (37.0-47.0) % MCV 93.1 (80.0-100.0) fL MCH 31.4 (25.0-34.0) pg MCHC 33.7 (32.0-36.0) g/dL RDW Std Deviation 44.6 (36.4-46.3) fL RDW Coeff of Brianna 13.2 (11.5-14.5) % Plt Count 254 (130-400) K/uL MPV 10.1 (9.4-12.4) fL Immature Gran % (Auto) 0.5 % Neut % (Auto) 68.1 % Lymph % (Auto) 16.0 % [place] % (Auto) 10.8 % Eos % (Auto) 3.6 % Baso % (Auto) 1.0 % Neut # (Auto) 3.92 (1.40-6.50) K/uL Lymph # (Auto) 0.92 L (1.20-3.40) K/uL [place] # (Auto) 0.62 H (0.11-0.59) K/uL Eos # (Auto) 0.21 (0.00-0.50) K/uL Baso # (Auto) 0.06 (0.00-0.20) K/uL Immature Gran # (Auto) 0.03 (0.01-0.20) K/uL Sodium 139 (136-145) mmol/L Potassium 3.8 (3.5-5.1) mmol/L Chloride 110 H (98-107) mmol/L Carbon Dioxide 22 (21-32) mmol/L Anion Gap 7 (3-11) BUN 26 H (6-23) mg/dl Creatinine 0.92 (0.6-1.2) mg/dl Est Cr Clr Drug Dosing 53.3 ml/min eGFR 66.98 BUN/Creatinine Ratio 28.3 H (10-20) Glucose 177 H (70-99(Fasting)) mg/dl Calcium 9.8 (8.6-10.3) mg/dl Total Bilirubin 0.5 (0.2-1.0) mg/dl AST 17 (13-39) U/L ALT 9 (7-52) U/L Alkaline Phosphatase 104 (34-104) U/L Troponin I High Sens 5.5 (0-14) pg/ml Total Protein 7.8 (6.0-8.3) gm/dl Albumin 4.5 (3.4-5.0) gm/dl Globulin 3.3 (2.5-4.0) gm/dl Albumin/Globulin Ratio 1.4 (0.9-2) Lipase 62 (11-82) U/L Administered Medications Discontinued Medications Ascorbic Acid (Ascorbic Acid 500 Mg Tab) [facility]: 12/27/24 08:59 Last Admin: 11/27/24 09:29 Dose: 1,000 mg Documented By: KELLEE Aspirin (Aspirin 81 Mg Ectab) 81 mg PO DAILY [facility] Stop: 12/27/24 08:59 Last Admin: 11/27/24 09:30 Dose: 81 mg Documented By: KELLEE Atorvastatin Calcium (Atorvastatin 40 Mg Tab) 80 mg PO DAILY [facility] Stop: 12/27/24 08:59 Last Admin: 11/27/24 09:30 Dose: 80 mg Documented By: KELLEE Clopidogrel Bisulfate (Clopidogrel Bisulfate 75 Mg Tab) 75 mg PO QAM [facility] Stop: 12/27/24 08:59 Last Admin: 11/27/24 09:30 Dose: 75 mg Documented By: KELLEE Ferrous Gluconate (Ferrous Gluconate 324 Mg Tab) 324 mg PO DAILY [facility] Stop: 12/27/24 08:59 Last Admin: 11/27/24 09:30 Dose: 324 mg Documented By: KELLEE Gemfibrozil (Gemfibrozil 600 Mg Tab) 600 mg PO BID [facility] Stop: 12/26/24 20:59 Last Admin: 11/27/24 09:30 Dose: 600 mg Documented By: Admin: 11/26/24 20:16 Dose: 600 mg Documented By: MARINO Hydroxyzine HCl (Hydroxyzine Hcl 25 Mg Tab) 25 mg PO TID PRN PRN Reason: Anxiety Stop: 12/26/24 20:59 Last Admin: 11/26/24 20:20 Dose: 25 mg Documented By: MARINO Insulin Aspart (Insulin Aspart Per Unit Charge) 0 units SC [facility] Stop: 12/26/24 16:29 Last Admin: 11/27/24 12:25 Dose: Not Given Documented By: Admin: 11/27/24 09:17 Dose: Not Given Documented By: Admin: 11/26/24 20:21 Dose: 1 units Documented By: MARINO Co-signed By: SHARIFA Admin: 11/26/24 17:57 Dose: 5 units Documented By: SHAGGY Co-signed By: ivette Insulin Glargine (Lantus Per Unit Charge) 0 units SC [facility]; Protocol Stop: 12/26/24 20:59 Last Admin: 11/26/24 20:12 Dose: Not Given Documented By: MARINO Metoprolol Tartrate (Metoprolol Tartrate 25 Mg Tab) 25 mg PO BID [facility] Stop: 12/26/24 20:59 Last Admin: 11/27/24 09:30 Dose: 25 mg Documented By: Admin: 11/26/24 20:16 Dose: 25 mg Documented By: MARINO Pantoprazole Sodium (Pantoprazole 40 Mg Tab) 40 mg PO DAILY [facility] Stop: 12/27/24 08:59 Last Admin: 11/27/24 09:30 Dose: 40 mg Documented By: KELLEE Sertraline HCl (Sertraline Hcl 100 Mg Tablet) 100 mg PO BID [facility] Stop: 12/27/24 08:59 Last Admin: 11/27/24 09:30 Dose: 100 mg Documented By: KELLEE Discharge Plan Visit Data Chief Complaint: Chest Pain Stated Complaint: SOB CHEST PAIN ED Provider: Ammon Orr Discharge Problem: Chest pain Patient Disposition: Admitted As Inpatient Condition: Good Discharge Instructions Interventions: ED Discharge Assessment Last Done: 11/26/24 16:33
--- NOTE | 2024-11-26 13:51 | XRay Report ---
SINGLE VIEW CHEST CLINICAL HISTORY: Chest pain FINDINGS: An AP, portable, upright chest radiograph is compared to study dated 04/17/2024 and correlat ed with chest CT dated 03/08/2024. The heart is mildly enlarged noting atherosclerotic calcification o f the thoracic aorta. The pulmonary vasculature is noncongested. Chronic interstitial thickening is s imilar to previous there there is mild bibasilar scarring/atelectasis. No airspace consolidation or l arge pleural effusion is identified. No pneumothorax is seen. The skeletal structures are osteopenic. The bony thorax is grossly intact. Calcific tendinopathy is noted in the right shoulder. IMPRESSION: No acute cardiopulmonary abnormality is identified. ACT 112: Negative or not required by law. Electronically signed by: Junior Up M.D. 11/26/2024 1:50 PM
[2024-11-26] MEDS ORDERED: PHARMACY GLYCEMIC MGMT CONSULT PRN (14:53)
[2024-11-26] MEDS ORDERED: ACETAMINOPHEN 325 MG TAB PO PRN (14:53)
[2024-11-26] MEDS ORDERED: GLUCOSE 10 TAB/TUBE PO PRN (15:15)
[2024-11-26] MEDS ORDERED: DEXTROSE 50% 50 ML SYRINGE IV PRN (15:15)
[2024-11-26] MEDS ORDERED: CARBOHYDRATES FOR HYPOGLYCEMIA PO PRN (15:15)
[2024-11-26] MEDS ORDERED: GLUCOSE 40% GEL 15 GM TUBE PO PRN (15:15)
[2024-11-26] MEDS ORDERED: GLUCAGON FOR INJ 1 MG VIAL SQ PRN (15:15)
--- NOTE | 2024-11-26 16:08 | History & Physical Report ---
Date of Service November 26, 2024 Assessment & Plan (1) Chest pain: Plan: -tele -troponin x3 -asa, plavix, metoprolol, atorvastatin -cardiology consulted (2) CAD (coronary artery disease): (3) Hyperlipidemia: (4) Anxiety: Plan: -hydroxyzine -setraline (5) Diabetes mellitus type 2, controlled: Plan: -pharm consult for glycemic management Plan Heparin SQ for DVT px History of Present Illness Chief Complaint: Chest pain Primary Care Provider: Abdi Manuel DO Pt is a 69 y/o female with pmh of CAD s/p stents, DM, anxiety/depression who presents with chest pain that radiates down her left arm that started earlier today. In the ER her EKG showed no acute ST-T changes, and her troponin were negative. Pt feeling symptoms. She will be admitted for further work up to r/o ACS at this time. Allergies Allergy/AdvReac Type Severity Reaction Status Date / Time nickel Allergy Mild RASH Verified 11/26/24 15:44 Home Medications Medication Instructions Recorded Confirmed Type multivitamin 1 tab PO QPM 01/15/22 11/26/24 History aspirin 81 mg tablet,delayed 81 mg PO DAILY #30 tabs 02/21/22 11/26/24 Rx release (Adult Low Dose Aspirin) ferrous gluconate 225 mg (27 mg 225 mg PO DAILY #90 tabs 12/14/23 11/26/24 Rx iron) tablet gemfibrozil 600 mg tablet 600 mg PO BID 90 days #180 tabs 12/14/23 11/26/24 Rx clopidogrel 75 mg tablet 75 mg PO QAM #90 tabs 09/30/24 11/26/24 Rx semaglutide 0.25 mg or 0.5 mg (2 0.5 mg (0.736 mL) subcut Q7D #3 mL 10/03/24 11/26/24 Rx mg/3 mL) subcutaneous pen injector (Ozempic) atorvastatin 80 mg tablet 80 mg PO QAM 11/26/24 11/26/24 History hydroxyzine HCl 25 mg tablet 25 mg PO HS 11/26/24 11/26/24 History magnesium 250 mg tablet 250 mg PO DAILY 11/26/24 11/26/24 History omeprazole 40 mg capsule,delayed 40 mg PO QAM 11/26/24 11/26/24 History release sertraline 100 mg tablet 100 mg PO BID 11/26/24 11/26/24 History Past Med/Surg History Problem List (Updated 11/26/24 @ 13:39 by Ammon Orr MD) Chest pain (Acute) Numbness and tingling Mild cognitive impairment Tremor Fatigue Memory impairment Multiple thyroid nodules CAD (coronary artery disease) Changing skin lesion Onychomycosis Bilateral great toes Hyperlipidemia Encounter for pre-operative examination Anxiety (Acute) Chest pain on exertion (Acute) Chest pain (Acute) Diabetes mellitus type 2, controlled Iron deficiency anemia Renal calculus, left Medical History Chest pain, rule out acute myocardial infarction Acute UTI CAD (coronary atherosclerotic disease) Extremity numbness Precordial chest pain Abnormal stress test History of blood transfusion History of fainting Hx of chest pain Iron deficiency anemia Hx of peripheral neuropathy Diabetes mellitus, type 2 Urinary tract infection Hx of renal calculi Anxiety Surgical History Hx of vaginal surgery Hx of section Hx of colonoscopy [place] teeth extracted Family History Sister Breast cancer Mother Diabetes Father Myocardial infarction Other Heart disease Denies family history of Ovarian cancer Prostate cancer Colorectal cancer Social History Smoking Status: Never smoker Second Hand Exposure: No; Do You Dip or Chew Tobacco: No; Hx Alcohol Use: No Hx Substance Use: No Preferred Language: Danish Communication Ability: Effective Visual Impairment: No Limitations Hearing Ability: Hard of Hearing Outside Sales Professional Required: No Beliefs That Will Affect Care: None marital status: Current Living Situation: Spouse current occupational status: retired How many Children do You have: 2 How many Children do You have Comment: daughters Feels Safe at Home: Yes Childhood Exposure to Second-Hand Smoke: No Diet: diabetic caffeine: No during the past year weight has: decreased > 10 lbs Dental Care, Regularly: No Physical Activity Frequency: Daily Seatbelt Use: always Sunscreen Use: No Assistive Devices: None Review of Systems Review of Systems: CONST: Negative for fever, body aches and chills. HENT: Negative for neck pain/stiffness, headache, congestion, sore throat, swe lling. EYES: Negative for discharge/pain or vision changes. RESP: Negative for cough/hemoptysis and shortness of breath. CV: Negative chest pain, difficulty breathing, palpitations. ABD: Negative pain, nausea, vomiting. : Negative increase frequency, dysuria, blood in urine or stool. MUSC: Negative for muscle aches, edema. SKIN: Negative rash, lesions/sores. NEURO: Negative headache, dizziness, weakness. Physical Exam Physical Exam: GENERAL APPEARANCE NAD, activity normal for age, well developed/ well nourished, no cyanosis, pallor, or diaphoresis. EYES lids/conjunctiva normal. EARS/NOSE/THROAT Mucous membranes moist, nares normal, lips/teeth normal uvula midline without oral pharyngeal erythema, exudate or swelling TMs normal bilaterally. No lymphangitis/lymphedema. HEAD/NECK normocephalic atraumatic, no facial trauma, neck is supple. RESPIRATORY respiratory effort normal, speaks in full sentences, no tripod position, no accessory muscle use. Lungs clear to auscultation without rhonchi, wheezes, rales CARDIAC Regular rate and rhythm, no edema. ABDOMINAL Soft, ND/NT. No evidence of fluid wave. No pulsatile masses on exam, rebound tenderness, Olivo sign or pain over Mcburney's point. MUSCLES/EXTREMITIES No abnormal range of motion, no swelling. SKIN Warm, pink and dry. No rashes, dermatoses, petechiae or lesions. NEUROLOGICAL Speech is clear and appropriate. Normal level of consciousness. Gait and coordination are normal. 5/5 strength in all extremities. PSYCH Normal mood and affect. Judgement/competence is appropriate Results & Data Results & Data Vital Signs (Past 12 Hours) Vital Signs Temp Pulse Pulse Resp BP BP Pulse Ox 11/26/24 15:40 74 131/68 96 11/26/24 13:09 76 13 140/81 94 11/26/24 12:52 80 16 95 11/26/24 12:52 95 11/26/24 12:50 84 11/26/24 12:39 36.6 C 80 15 141/79 H 95 O2 Del Method 11/26/24 15:40 11/26/24 13:09 Room Air 11/26/24 12:52 Room Air 11/26/24 12:52 Room Air 11/26/24 12:50 11/26/24 12:39 Room Air PG Care Time/CCT Total # of Minutes Spent Total Time Spent with Patient: Total time spent is greater than 50% in coordination of care (as documented) at patient's floor/unit and/or counseling patient: Coding Level of Care Code 80077 INT INP/OBS CARE 2/55MIN Diagnoses Chest pain R07.9 CAD (coronary artery disease) I25.10 Hyperlipidemia E78.5 Anxiety F41.9 Diabetes mellitus type 2, controlled E11.9
[2024-11-26] MEDS: INSULIN ASPART PER UNIT CHARGE SC SCH (17:57)
[2024-11-26] MEDS: LANTUS PER UNIT CHARGE SC SCH (20:12)
[2024-11-26] MEDS: METOPROLOL TARTRATE 25 MG TAB PO SCH (20:16)
[2024-11-26 23:10] VITALS: RESP 18
[2024-11-27 06:31] LABS: Hematocrit (blood only) 35.6 % (37.0-47.0); Hemoglobin 12.1 g/dl (12.0-16.0); Mean Corpuscular Hemoglobin 31.4 pg (25.0-34.0); Mean Corpuscular Volume 92.5 fL (80.0-100.0); Platelet Count 254 K/uL (130-400); RDW Standard Deviation 44.3 fL (36.4-46.3); Red Blood Count 3.85 M/uL (4.20-5.40); White Blood Count 6.04 K/ul (4.8-10.8)
[2024-11-27 06:57] LABS: Anion Gap 9.0 (3-11); Blood Urea Nitrogen 24.0 mg/dl (6-23); Calcium 10.2 mg/dl (8.6-10.3); Carbon Dioxide 23.0 mmol/L (21-32); Chloride 109.0 mmol/L (98-107); Creatinine Clr Calc Pharmacy 53.9 ml/min; Glucose 116.0 mg/dl (70-99(Fasting)); Potassium 3.8 mmol/L (3.5-5.1); Sodium 141.0 mmol/L (136-145)
--- NOTE | 2024-11-27 07:37 | Pharmacy Report ---
Pharmacy Glycemic Short Note 2 - Date of Service November 27, 2024 - Glycemic Short BSG Results (Last 24 hours): 11/26/24 11/26/24 11/26/24 12:47 17:19 19:41 Glucose 177 H POC Glucose 134 H 157 H 11/27/24 06:00 Glucose 116 H POC Glucose OUTPATIENT ANTIDIABETIC REGIMEN: * Ozempic 0.5mg SC Q7D * A1c 7.2% 10/14/24 ASSESSMENT: * 69 yo F admitted w/ CP, cardio consult, type 2 DM on Ozempic at home. Patient required 6 units of NovoLog yesterday, fasting 116mg/dl this morning. * Type 2 DM diet. * Continue NovoLog parameters, add basal if needed HS. PLAN FOR INPATIENT GLYCEMIC CONTROL: * Hold outpatient diabetes medications * Basal insulin * Lantus 10 units SQ HS for BSG 180mg/dl or greater * Bolus insulin * NovoLog per scale ACHS or Q6hrs while NPO * Goal Range: Low 110 mg/dL - High 140 mg/dL * Correction Factor: 35 mg/dL/unit * Nutritional / Prandial insulin per carb ratio of 1 unit per 12 grams CHO consumed
[2024-11-27] MEDS ORDERED: SERTRALINE HCL 100 MG TABLET PO SCH (09:00)
[2024-11-27] MEDS: ASCORBIC ACID 500 MG TAB PO SCH (09:29)
[2024-11-27] MEDS: SERTRALINE HCL 100 MG TABLET PO SCH (09:30)
[2024-11-27] MEDS: CLOPIDOGREL BISULFATE 75 MG TAB PO SCH (09:30)
[2024-11-27] MEDS: ASPIRIN 81 MG ECTAB PO SCH (09:30)
[2024-11-27] MEDS: FERROUS GLUCONATE 324 MG TAB PO SCH (09:30)
[2024-11-27] MEDS: ATORVASTATIN 40 MG TAB PO SCH (09:30)
[2024-11-27 11:31] VITALS: TEMP 98.2; O2SAT 93
--- NOTE | 2024-11-27 12:29 | Cardiology Consultation ---
Date of Consultation November 27, 2024 Assessment & Plan (1) Non-cardiac chest pain: -Hours of symptoms with a normal EKG and high-sensitivity troponins. -Not consistent with coronary ischemia. -Etiology uncertain. -Stable for hospital discharge from a cardiac perspective. (2) CAD (coronary artery disease): -s/p BETITO x 2 to the LAD and D1, March 2024. -Continue medical management. (3) Hyperlipidemia: -Continuing atorvastatin and gemfibrozil. History of Present Illness Attending Physician: Jocelyn Hester MD History of Present Illness Mrs. Rojas is a 69-year-old female admitted yesterday with a chest pain syndrome. This consultation was ordered to assist in her cardiac management. Of note, the patient typically follows with Dr. Buenrostro in the outpatient setting. The patient was in her usual state of health until 10 PM on Thursday evening. She developed an upper sternal discomfort which radiated to her shoulders, upper extremities, and her neck. There were no other associated symptoms. Her symptoms continued without change until she went to bed at midnight. When she awoke at 9 AM Thursday, she still had the discomfort as described. She presented to the emergency room at approximately 11 AM. Her discomfort has nearly resolved, however, she still notes a sensation in the upper sternal region. She does carry history of coronary artery disease having undergone placement of 2 drug-eluting stents at the bifurcation of the LAD and the first diagonal branch. This occurred back in March 2024. 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 Past medical and surgical history 1. Coronary artery disease 2. LAD/D1 BETITO x 2023 3. Hypertension 4. Hypercholesterolemia 5. Diabetes mellitus 6. Chronic venous insufficiency 7. Nephrolithiasis 8. Social history and lives with her No tobacco or alcohol Family history Noncontributory Review of systems A 10 point review of system was undertaken and negative except that described above. Allergies Allergy/AdvReac Type Severity Reaction Status Date / Time nickel Allergy Mild RASH Verified 11/26/24 15:44 Home Medications Medication Instructions Recorded Confirmed Type multivitamin 1 tab PO QPM 01/15/22 11/26/24 History aspirin 81 mg tablet,delayed 81 mg PO DAILY #30 tabs 02/21/22 11/26/24 Rx release (Adult Low Dose Aspirin) ferrous gluconate 225 mg (27 mg 225 mg PO DAILY #90 tabs 12/14/23 11/26/24 Rx iron) tablet gemfibrozil 600 mg tablet 600 mg PO BID 90 days #180 tabs 12/14/23 11/26/24 Rx clopidogrel 75 mg tablet 75 mg PO QAM #90 tabs 09/30/24 11/26/24 Rx semaglutide 0.25 mg or 0.5 mg (2 0.5 mg (0.736 mL) subcut Q7D #3 mL 10/03/24 11/26/24 Rx mg/3 mL) subcutaneous pen injector (Ozempic) atorvastatin 80 mg tablet 80 mg PO QAM 11/26/24 11/26/24 History hydroxyzine HCl 25 mg tablet 25 mg PO HS 11/26/24 11/26/24 History magnesium 250 mg tablet 250 mg PO DAILY 11/26/24 11/26/24 History omeprazole 40 mg capsule,delayed 40 mg PO QAM 11/26/24 11/26/24 History release sertraline 100 mg tablet 100 mg PO BID 11/26/24 11/26/24 History Patient History Medical History Chest pain, rule out acute myocardial infarction Acute UTI CAD (coronary atherosclerotic disease) Extremity numbness Precordial chest pain Abnormal stress test History of blood transfusion History of fainting Hx of chest pain Iron deficiency anemia Hx of peripheral neuropathy Diabetes mellitus, type 2 Urinary tract infection Hx of renal calculi Anxiety Surgical History Hx of vaginal surgery Hx of section Hx of colonoscopy [place] teeth extracted Family History Sister Breast cancer Mother Diabetes Father Myocardial infarction Other Heart disease Denies family history of Ovarian cancer Prostate cancer Colorectal cancer Social History Smoking Status: Never smoker Second Hand Exposure: No; Do You Dip or Chew Tobacco: No; Hx Alcohol Use: No Hx Substance Use: No Preferred Language: Occitan Communication Ability: Effective Visual Impairment: No Limitations Hearing Ability: Hard of Hearing Shirt Hemmer Required: No Beliefs That Will Affect Care: None marital status: Current Living Situation: Spouse Current Living Situation Comment: lives with , is his FT caregiver current occupational status: retired How many Children do You have: 2 How many Children do You have Comment: daughters Feels Safe at Home: Yes Childhood Exposure to Second-Hand Smoke: No Diet: diabetic caffeine: No during the past year weight has: decreased > 10 lbs Dental Care, Regularly: No Physical Activity Frequency: Daily Seatbelt Use: always Sunscreen Use: No Assistive Devices: Glasses Physical Exam Physical Exam: In general this is a well-developed well-nourished white female in no acute distress. HEENT exam is negative. Neck reveals normal carotid upstrokes without bruits. Jugular venous pressure is flat at 90. There is no thyromegaly. Cardiovascular exam reveals a regular rhythm with a normal S1 and S2. No S3, S4, or murmurs are noted. Lungs are clear without rales, rhonchi, or wheezes. Abdomen is soft without bruits. Extremities reveal intact radial artery and posterior tibial pulses bilaterally. There is no peripheral edema. Results & Data Vital Signs (Past 12 Hours) Vital Signs Temp Pulse Pulse Resp BP Pulse Ox O2 Del Method 11/27/24 11:30 36.8 C 66 18 118/63 93 Room Air 11/27/24 09:15 65 11/27/24 08:08 36.5 C 55 L 18 104/61 95 Room Air 11/27/24 04:00 36.5 C 75 18 122/65 96 Room Air Laboratory Results CBC and electrolytes are unremarkable. Initial high-sensitivity troponin was normal at 5.5 with a follow-up of 6.4. Diagnostic Findings EKG notes normal sinus rhythm without abnormalities. Chest x-ray shows no acute disease. PG Care Time/CCT Total # of Minutes Spent Total Time Spent with Patient: Total time spent is greater than 50% in coordination of care (as documented) at patient's floor/unit and/or counseling patient: Coding Level of Care Code 22389 INT INP/OBS CARE 3/75MIN Diagnoses Non-cardiac chest pain R07.89 CAD (coronary artery disease) I25.10 Hyperlipidemia E78.5
--- NOTE | 2024-11-27 12:42 | Electrocardiogram Report ---
Test Reason : Blood Pressure : */* mmHG Vent. Rate : 82 BPM Atrial Rate : 82 BPM P-R Int : 168 ms QRS Dur : 74 ms QT Int : 368 ms P-R-T Axes : 56 18 39 degrees QTcB Int : 429 ms Normal sinus rhythm Normal ECG When compared with ECG of 17-Apr-2024 13:27, No significant change was found Confirmed by Eladio Quezada ([id number]) on 11/27/2024 12:41:41 PM Referred By: REFERRED SELF Confirmed By: Eladio Quezada
--- NOTE | 2024-11-27 13:07 | Electrocardiogram Report ---
Test Reason : Blood Pressure : */* mmHG Vent. Rate : 67 BPM Atrial Rate : 67 BPM P-R Int : 194 ms QRS Dur : 76 ms QT Int : 412 ms P-R-T Axes : 62 24 42 degrees QTcB Int : 435 ms Normal sinus rhythm Normal ECG When compared with ECG of 26-Nov-2024 12:38, No significant change was found Confirmed by Eladio Quezada ([id number]) on 11/27/2024 1:06:59 PM Referred By: REFERRED SELF Confirmed By: Eladio Quezada
--- NOTE | 2024-11-27 14:05 | Discharge Summary ---
Discharge Summary Date of Service November 27, 2024 Principal Dx & Hospital Course #1 = Principal Diagnosis (1) Chest pain: (2) CAD (coronary artery disease): (3) Hyperlipidemia: (4) Anxiety: (5) Diabetes mellitus type 2, controlled: Plan #chest pain Pt is a 69 y/o female with pmh of CAD s/p stents, DM, anxiety/depression who presents with chest pain that radiates down her left arm that started earlier today. In the ER her EKG showed no acute ST-T changes, and her troponin were negative. Pt feeling symptoms. She will be admitted for further work up and cardiology consultatin. Troponin remains negative. Cardiology consulted - not ACS. No acute medication changes recommened. Patient feeling better and stable for discharge home. Continue DAPT and statin. Consideration for metoprolol as it was started in April after a similar event, but not continued inpatient. With outpatient fatigue workup ongoing - further metoprolol deffered at this time. Rec cardiac rehab. #anxiety -hydroxyzine -setraline #DM - continue home meds Discharge to home todari[place] - continue outpatient follow up with PCP and neurology Admission HPI Per Admitting Provider Pt is a 69 y/o female with pmh of CAD s/p stents, DM, anxiety/depression who presents with chest pain that radiates down her left arm that started earlier today. In the ER her EKG showed no acute ST-T changes, and her troponin were negative. Pt feeling symptoms. She will be admitted for further work up to r/o ACS at this time. 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 no UE weakness Neuro: A&O x3, Skin: intact, no lesions noted Discharge Plan Discharge Items Patient Disposition: Home - Self-Care Reason For Visit: CHEST PAIN Discharge Diagnosis: chest pain - resolved Activity: Resume your previous activity Driving/Machine Use: No limitations Weightbearing: Full weightbearing Non-emergency contact: Primary Care Provider Call non-emergency contact if: you have any medication questions, your symptoms worsen and your temperature is above 101 Follow-up/Referrals: Abdi Manuel DO [Primary Care Provider] - 12/06/24 11:30 am () Diet: Carb Consistent or DM2 and Heart Healthy Addtl Attending Provider Instructions: [place] were hospitalized after an episode of chest pain. Thankfully your EKGs, cardiac monitoring and troponin (heart level enzymes) do not show any evidence of worsening heart problems and your pain has not returned. You were seen by cardiology who did not recommend any further workup. Recommend continued follow up and workup with your PCP and neurologist for your other chronic symptoms. No changes to your home medications. please follow up with your PCP in 1-2 weeks Pending Studies at Discharge: No Stand-Alone Forms: My [facility] [employer], Smoking Cessation Medications and DC Order Prescriptions: Continued aspirin [Adult Low Dose Aspirin] 81 mg tablet,delayed release (DR/EC) 81 mg PO DAILY Qty: 30 2RF clopidogrel 75 mg tablet 75 mg PO QAM Qty: 90 3RF Ozempic 0.25 mg or 0.5 mg (2 mg/3 mL) pen injector 0.5 mg subcut Q7D Qty: 3 3RF Rx Instructions: Thursday ferrous gluconate 225 mg (27 mg iron) tablet 225 mg PO DAILY Qty: 90 3RF gemfibrozil 600 mg tablet 600 mg PO BID 90 Days Qty: 180 3RF multivitamin Tablet 1 tab PO QPM atorvastatin 80 mg tablet 80 mg PO QAM sertraline 100 mg tablet 100 mg PO BID hydroxyzine HCl 25 mg tablet 25 mg PO HS magnesium 250 mg Tablet 250 mg PO DAILY omeprazole 40 mg Capsule,Delayed Release(Dr/Ec) 40 mg PO QAM Discharge Orders: Discharge Order (Routine); Ordered 11/27/24 Ordered By: Demi Bruno Admission Data Admit Date/Time: 11/26/24 14:54 Attending Provider: Jocelyn Hseter Admit Provider: Pedro Kim Primary Care Provider: Abdi Manuel Other Providers: Eladio Quezada Hospital Stay Data Consultations 11/26/24 17:00 Consult Cardiology Routine Pending Results Patient Have Any Pending Studies at Discharge: No Discharge Instructions Given to Patient (Per Discharging Provider) [place] were hospitalized after an episode of chest pain. Thankfully your EKGs, cardiac monitoring and troponin (heart level enzymes) do not show any evidence of worsening heart problems and your pain has not returned. You were seen by cardiology who did not recommend any further workup. Recommend continued follow up and workup with your PCP and neurologist for your other chronic symptoms. No changes to your home medications. please follow up with your PCP in 1-2 weeks Total Time Total Time Spent Total Time Spent (In Minutes): Time spent day of discharge 35 minutes including direct patient care, medication reconciliation, documentation, review of labs and images, and coordination of care. Coding Level of Care Code 99299 INP/OBS DISCH >30 MIN Diagnoses Chest pain R07.9 CAD (coronary artery disease) I25.10 Hyperlipidemia E78.5 Anxiety F41.9 Diabetes mellitus type 2, controlled E11.9
[2024-11-27 14:11] VITALS: BP 104/65; PULSE 73
== END 2024-11-27 14:55 | disposition home or self-care (01) ==
LOC: ED 12:31 → 2N 12:31 → SUATTDRO 14:54 → 2N 16:33